=== PATIENT | male | born 1935 | race Caucasian/White ===

== ENCOUNTER → 2016-12-07 | Outpatient (CLI) | payer MEDICARE ==
[~2016-12-07] MED LIST: AMIO200T2 PO; CARV25TA2 PO; CLOP75TA19 PO; FAMO-137 PO; GLIM2TAB26 PO; METF-206 PO; RIVA20TA PO
--- NOTE | 2016-12-07 13:20 | DI ---
Indication: ITS.REASON: R09.89 CAROTID BRUIT PROCEDURE: US CAROTID DOPP COMPLETE: TECHNIQUE: Grayscale, color and duplex Doppler imaging was performed of the carotid systems bilaterally. Velocities in cm/sec - validated velocity measurements with angiographic measurements, velocity criteria are extrapolated from diameter data as defined by the Society of Radiologists in Ultrasound Consensus Conference Radiology 2003; 229;340-346. RIGHT: PSV ICA 71 EDV ICA 15 PSV CCA 57 EDV CCA 9 SVR 1.2 PSV ECA 82 ICA Diameter reduction 20%-40% (1.2-1.4 [id number])% LEFT: PSV ICA 221 EDV ICA 34 PSV CCA 104 EDV CCA 4.3 SVR 2.1 PSV ECA 160 ICA Diameter reduction 70%-80% (>2.5 PSV>200)% The right vertebral artery is patent with cephalic flow. The left vertebral artery is patent with cephalic flow. Mild plaque in the right carotid bulb and proximal ICA. No velocity elevation on the right. Heavy atherosclerotic plaque in the left common carotid and carotid bulb. Large noncalcified plaque in the left proximal ICA with focal velocity elevation. Velocities decrease through the mid to distal left ICA but remain above normal. IMPRESSION: 1. 70-80% stenosis in the left proximal ICA, decreasing to 50-60% more distally. 2. No hemodynamically significant carotid stenosis on the right. .
== END ==
LOC: IMA 12:26
PROVIDERS: ATTEND Family Medicine
DX: I65.22 Occlusion and stenosis of left carotid artery (principal); R01.2 Other cardiac sounds; R09.89 Other specified symptoms and signs involving the circulatory and respiratory systems

== ENCOUNTER 2016-12-18 07:17 | Inpatient (IN) ==
--- NOTE | 2016-12-18 07:59 | Emergency Department Report ---
General Adult HPI - General Chief complaint: Shortness of Breath/Dyspnea Stated complaint: soa Time Seen by Provider: 12/18/16 07:30 Source: patient, family Mode of arrival: ambulatory Limitations: no limitations - History of Present Illness HPI narrative: 81-year-old male presents to the emergency department with a chief complaint of feeling short of breath. Patient states that he has a history of atrial fibrillation and feels like he is in atrial fibrillation again. Patient notes feeling like his heart is beating irregularly and hard in his left chest. Patient does not feel any radiation of his symptoms. No other complaints or associated symptoms. Patient notes that he is usually chronically short of breath but feels like his symptoms have exacerbated over the past 24-48 hours. Patient does not note any exacerbating or remitting symptoms. No other complaints or associated symptoms. Patient states that he has been compliant with his Xarelto/Plavix and other medication regimens. Symptoms have persisted in nature since onset. - Related Data Home Medications Medication Instructions Recorded Confirmed Clopidogrel Bisulfate [Plavix] 75 mg PO DAILY #0 12/31/12 12/18/16 Glimepiride 2 mg PO DAILY #0 01/07/13 12/18/16 Famotidine [Pepcid] 1 tab PO DAILY #0 tab 09/10/14 12/18/16 Amiodarone HCl 1 tab PO BID #30 10/14/15 12/18/16 Carvedilol 1 tab PO DAILY #60 10/14/15 12/18/16 Rivaroxaban [Xarelto] 20 mg PO DAILY #30 10/14/15 12/18/16 Metformin [Glucophage] 1,000 mg PO BID 12/18/16 12/18/16 Pedi Mv No.79/Ferrous Fumarate 18 mg PO DAILY 12/18/16 12/18/16 [Flintstones with Iron Tab Chew] Allergies Allergy/AdvReac Type Severity Reaction Status Date / Time No Known Allergies Allergy Verified 12/18/16 07:44 Review of Systems Constitutional: Denies: fever, chills Eyes: Denies: eye discharge, vision change ENT: Denies: ear pain, throat pain Cardiovascular: Denies: chest pain, palpitations Respiratory: Reports: dyspnea. Denies: cough Gastrointestinal: Denies: abdominal pain, nausea, vomiting, diarrhea Genitourinary: Denies: dysuria, frequency Musculoskeletal: Denies: back pain, joint swelling Integumentary: Denies: erythema, rash Neurological: Denies: headache, weakness, numbness Psychiatric: Denies: anxiety, depression Endocrine: Denies: fatigue, heat or cold intolerance Hematological/Lymphatic: Denies: easy bleeding, easy bruising Allergic/Immunologic: Denies: facial swelling, urticaria PFSH Patient Stated Medical History Cataracts Yes Angina Yes Congestive Heart Failure Yes Hypertension Yes Diabetes Mellitus Type 1 Yes Hx Incontinence Yes Hx Urinary Tract Infection Yes Osteoarthritis Yes Shingles Yes Surgical History: Cardiac catheterization with stent placement. Family History: Diabetes mellitus Smoking status: Never smoker Substance use type: does not use Alcohol intake frequency: does not drink Physical Exam - Limitations Limitations: no limitations - General General appearance: alert, in no apparent distress - Normal Exams: Head:: Normocephalic without trauma Eyes:: Pupils are PERRLA w/ EOMI, No scleral icterus, irritation, or foreign bodies noted ENMT:: No facial trauma, nasal exudates, pharyngeal erythema, or exudates are noted Dental: No fractured, loose, or missing teeth noted Neck:: Full range of motion, without adenopathy, JVD, bruits or thyromegaly Chest/Respirations:: Clear all black (Coarse breath sounds bibasilar.), with good airflow, and symmetry bilaterally Cardiovascular:: Regular rate and rhythm, without murmur or gallop, Pulses 2+ all extremities, capillary refill, <2 seconds all extremities Abdomen:: Bowel sounds positive, soft, non-tender, non-distended, no hepatosplenomegaly, masses or bruits noted Lymphatic:: No lymphadenopathy, or lymphedema noted Musculoskeletal:: No tenderness, or deformity noted, good range of motion, all extremities Integumentary:: No rashes, hives, or bruising noted, hair and nails, without abnormality Neurological:: Patient is alert, and oriented, cranial nerves, motor/sensory/ cerebellar, exams w/o gross deficits, to observation Psychiatric:: Patient exhibits, appropriate attention, emotion and affect Course Course Narrative: Labs/imaging were reviewed in detail with the patient and questions are answered. Patient was discussed with the soldering inspector Dr. Chery who agrees to admit the patient to his service. Patient is given Lopressor 25 mg by mouth times one, Lasix 20 mg IV times one, and his daily Plavix 75 mg by mouth 1. Patient is admitted to CCU in improved condition. Patient will be treated for a CHF exacerbation along with atrial flutter with RVR. Patient and family are in agreement with the current plan of management. Patient is admitted to the hospital in improved condition. No further orders from exiting physician who is in agreement with the current plan of management. Vital Signs Temperature 97.6 F 12/18/16 07:19 Pulse Rate 122 H 12/18/16 07:19 Respiratory Rate 28 H 12/18/16 07:19 Blood Pressure 156/81 H 12/18/16 07:19 Pulse Oximetry 98 12/18/16 07:19 Temperature 97.6 F 12/18/16 07:19 Pulse Rate 128 H 12/18/16 09:00 Respiratory Rate 22 12/18/16 09:00 Blood Pressure 131/78 12/18/16 09:00 Pulse Oximetry 96 12/18/16 09:00 Medical Decision Making - MDM Narrative Medical decision making narrative: Labs/imaging were reviewed in detail with the patient and questions are answered. Patient was discussed with the soldering inspector Dr. Chery who agrees to admit the patient to his service. Patient is given Lopressor 25 mg by mouth times one, Lasix 20 mg IV times one, and his daily Plavix 75 mg by mouth 1. Patient is admitted to CCU in improved condition. Patient will be treated for a CHF exacerbation along with atrial flutter with RVR. Patient and family are in agreement with the current plan of management. Patient is admitted to the hospital in improved condition. No further orders from exiting physician who is in agreement with the current plan of management. - Differential Diagnosis atrial fibrillation, atrial flutter, CHF exacerbation, dyspnea - Lab Data Result diagrams: 12/18/16 07:41 12/18/16 07:41 Lab Results 12/18/16 12/18/16 12/18/16 Range/Units 07:41 07:41 08:06 WBC 10.8 (4.5-11.0) T/MM3 RBC 4.79 (4.50-5.90) M/MM3 Hgb 10.8 L (13.5-17.5) GM/DL Hct 36.0 L (41-53) % MCV 75.2 L (80-100) UM3 MCH 22.5 L (26-34) UUG MCHC 30.0 L (31-37) GM/DL RDW Std Deviation 54.9 H (36.9-50.2) FL Plt Count 294 (130-400) T/MM3 MPV 11.5 (9.4-12.4) UM3 Immature Gran % (Auto) 0.1 (0.0-0.5) % Neut % (Auto) 76.7 H (33-66) % Lymph % (Auto) 14.5 L (23-45) % [place] % (Auto) 6.2 (0-9.0) % Eos % (Auto) 2.2 (0-4) % Baso % (Auto) 0.3 (0-2) % Neut # 8.3 H (1.8-7.7) T/MM3 Lymph # 1.6 (1-4.8) T/MM3 [place] # 0.7 (0-0.8) T/MM3 Eos # 0.2 (0-0.5) T/MM3 Baso # 0.0 (0-0.2) T/MM3 Abs Immat Gran (auto) 0.01 (0.00-0.03) T/MM3 Turbidity 20 (0-20) Sodium 148 H (134-144) MEQ/L Potassium 4.9 (3.6-5) MEQ/L Chloride 110 H (98-107) MEQ/L Carbon Dioxide 21 L (22-30) MEQ/L Anion Gap 17 H (5-15) MEQ/L BUN 31.0 H (9-20) MG/DL Creatinine 1.3 (0.8-1.5) MG/DL GFR Calculation 53 BUN/Creatinine Ratio 24 (6-26) RATIO Glucose 198 H (75-110) MG/DL Calculated Osmolality 297 H (261-280) MOSM/KG Calcium 9.3 (8.4-10.2) MG/DL Total Bilirubin 0.80 (0.20-1.30) MG/DL Icterus Index 2 (0-7) AST 26 (17-59) U/L ALT 48 (21-72) U/L Alkaline Phosphatase 30 L (38-126) U/L Troponin I 0.079 (0-0.12) ng/ml B-Natriuretic Peptide 7300 H (0-175) pg/mL Total Protein 6.9 (6.3-8.2) G/DL Albumin 4.2 (3.5-5.0) G/DL Globulin 2.7 (2.4-3.6) G/DL Albumin/Globulin Ratio 1.6 (1.1-2.2) RATIO Plasma Lactate (0.6-2.2) MMOL/L Procalcitonin < 0.05 NG/ML Specimen Hemolysis 15 (0-25) // Range/Units 08:06 WBC (4.5-11.0) T/MM3 RBC (4.50-5.90) M/MM3 Hgb (13.5-17.5) GM/DL Hct (41-53) % MCV (80-100) UM3 MCH (26-34) UUG MCHC (31-37) GM/DL RDW Std Deviation (36.9-50.2) FL Plt Count (130-400) T/MM3 MPV (9.4-12.4) UM3 Immature Gran % (Auto) (0.0-0.5) % Neut % (Auto) (33-66) % Lymph % (Auto) (23-45) % [place] % (Auto) (0-9.0) % Eos % (Auto) (0-4) % Baso % (Auto) (0-2) % Neut # (1.8-7.7) T/MM3 Lymph # (1-4.8) T/MM3 [place] # (0-0.8) T/MM3 Eos # (0-0.5) T/MM3 Baso # (0-0.2) T/MM3 Abs Immat Gran (auto) (0.00-0.03) T/MM3 Turbidity (0-20) Sodium (134-144) MEQ/L Potassium (3.6-5) MEQ/L Chloride (98-107) MEQ/L Carbon Dioxide (22-30) MEQ/L Anion Gap (5-15) MEQ/L BUN (9-20) MG/DL Creatinine (0.8-1.5) MG/DL GFR Calculation BUN/Creatinine Ratio (6-26) RATIO Glucose (75-110) MG/DL Calculated Osmolality (261-280) MOSM/KG Calcium (8.4-10.2) MG/DL Total Bilirubin (0.20-1.30) MG/DL Icterus Index (0-7) AST (17-59) U/L ALT (21-72) U/L Alkaline Phosphatase (38-126) U/L Troponin I (0-0.12) ng/ml B-Natriuretic Peptide (0-175) pg/mL Total Protein (6.3-8.2) G/DL Albumin (3.5-5.0) G/DL Globulin (2.4-3.6) G/DL Albumin/Globulin Ratio (1.1-2.2) RATIO Plasma Lactate 1.3 (0.6-2.2) MMOL/L Procalcitonin NG/ML Specimen Hemolysis (0-25) - Radiology Data CXR - Mild pulmonary edema, probably due to CHF. - EKG Data EKG #1 EKG results narrative: EKG -Atrial flutter. 124 bpm. No STEMI. Critical Care Time Total Critical Care Time: 42 Attestation: The patient required complex medical decision-making, repeated assessment at bedside, and had potential for decompensation. The 42 minutes was spent documenting the medical record, discussing with family, reviewing labs/imaging. Patient was admitted to the intensive care unit for further evaluation and treatment. Disposition Clinical Impression: Atrial flutter Qualifiers: Atrial flutter type: unspecified Qualified Code(s): I48.92 - Unspecified atrial flutter CHF (congestive heart failure) Qualifiers: Congestive heart failure type: unspecified congestive heart failure type Congestive heart failure chronicity: acute on chronic Qualified Code(s): I50.9 - Heart failure, unspecified Disposition: Discharged Home, Self-Care Condition: Improved Time of Disposition: 08:15 (Admit to Dr. Bishop. ) - Seen By: physician
[2016-12-18] MEDS ORDERED: CLOPIDOGREL 75 MG TABLET PO ONE (08:31)
[2016-12-18] MEDS ORDERED: FUROSEMIDE 20 MG/2 ML INJECTION IVP ONE (08:32)
--- NOTE | 2016-12-18 08:54 | XRay Report ---
Indication: sob and weakness PROCEDURE: XR chest 1V: Encounter: Initial Comparison: September 22, 2015 Findings: Mild pulmonary vascular congestion without focal lobar consolidation. No pneumothorax. Trace pleural effusions. Cardiac silhouette is moderately enlarged. Left pacemaker. Mediastinal contours are stable. Impression: Mild pulmonary edema, probably due to CHF. .
[2016-12-18] MEDS ORDERED: CARVEDILOL 25 MG TABLET PO SCH (11:15)
[2016-12-18] MEDS ORDERED: RIVAROXABAN 20 MG TABLET PO SCH (11:15)
--- NOTE | 2016-12-18 11:59 | Cardiology History & Physical ---
History of Present Illness Chief complaint: shortness of breath HPI: 81-year-old male presented to the emergency department with a chief complaint of feeling short of breath. Patient has a history of atrial fibrillation and feels like he is in atrial fibrillation again. Patient notes feeling like his heart is beating irregularly and hard in his left chest. Patient states that he has been compliant with his Xarelto/Plavix and other medication regimens. Symptoms have persisted in nature since onset. 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 He denies any accompanying chest pain, LE edema, pre- syncope, PND. He is positive for orthopnea. He is an established patient with Dr. Benitez, with whom he underwent a DCCV within the last 2 years. He has been on sotalol and xarelto since that time, he states he is aware he goes in and out of AFib frequently but denies associated prolonged symptoms. He reports a personal history of an AZ with subsequent stent placement with Dr. Rebolledo 3years ago, he also had a PPM placed around that same time. His PPM is a [employer] device, he remote monitors at home. He reports a right CEA within the last [address] Boone and had a DCD 1 month ago, report carotids are stable. He was scheduled for a MPI next week with Dr. Benitez, he denies an ECHO within the last one year. He denies previous care of EP or an ablation. He follows with Dr. Mtz for chronic anemia, DM2, HTN, HLD. He is currently in a lipid study with [facility] [employer]. Review of Systems - Constitutional Constitutional: Present: fatigue, weight gain - EENMT Eyes: Present: requires corrective lenses Balance: Present: falling to one side. Absent: vertigo Nose: Absent: allergies Mouth/Throat: Present: changes in swallowing, painful swallowing - Cardiovascular Cardiovascular: Present: palpitations, dyspnea on exertion, orthopnea. Absent: chest pain, syncope, edema Rhythm: Present: abnormal rhythm Vascular: Present: unilateral swelling. Absent: pedal edema - Respiratory Respiratory: Present: dyspnea, dyspnea on exertion. Absent: cough - Gastrointestinal Gastrointestinal: Present: dysphagia. Absent: change in bowel habits, constipation - Genitourinary Genitourinary: Absent: difficulty urinating - Musculoskeletal Musculoskeletal: Present: abnormal gait (prior right leg injury) - Integumentary/Breasts Integumentary: Absent: erythema, rash - Neurological Neurological: Absent: confusion, dizziness, frequent falls, memory loss, vertigo - Psychiatric Psychiatric: Absent: anxiety, behavioral changes - Endocrine Endocrine: Absent: excessive sweating - Hematologic/Lymphatic Hematologic/Lymphatic: Absent: lymphadenopathy - Allergic/Immunologic Allergic/Immunologic: Absent: seasonal rhinorrhea PFSH chronic anemia AZ CAD s/p stenting Carotid stenosis DM 2 HTN HLD wears home O2, nocturnally Surgical History: Cardiac catheterization with stent placement. Right CEA. Right LE fracture/repair 1976 Smoking status: Never smoker Substance use type: does not use Alcohol intake: never Housing: house Household members: spouse Current occupational status: retired, other ([employer]) Current occupational exposures/hazards: No Does patient use chewing tobacco?: No Current residence: Apartment/Private Home Medications Home Medications Medication Instructions Recorded Confirmed Type Glimepiride 2 mg PO DAILY #0 01/07/13 12/18/16 History Famotidine [Pepcid] 1 tab PO DAILY #0 tab 09/10/14 12/18/16 History Rivaroxaban [Xarelto] 20 mg PO DAILY #30 10/14/15 12/18/16 History Lisinopril [Prinivil] 10 mg PO DAILY 12/18/16 12/18/16 History Metformin [Glucophage] 1,000 mg PO BID 12/18/16 12/18/16 History Pedi Mv No.79/Ferrous Fumarate 18 mg PO DAILY 12/18/16 12/18/16 History [Flintstones with Iron Tab Chew] Simvastatin [Zocor] 40 mg PO DAILY 12/18/16 12/18/16 History Allergies Allergy/AdvReac Type Severity Reaction Status Date / Time No Known Allergies Allergy Verified 12/18/16 07:44 Exam Vital signs: Temp Pulse Resp BP Pulse Ox 97.6 F 128 H 22 150/79 H 96 12/18/16 07:19 12/18/16 09:00 12/18/16 09:00 12/18/16 09:30 12/18/16 09:00 - Constitutional no acute distress - Routine HEENT Exam Head: Present: normocephalic, atraumatic Eye: Present: PERRL, normal accommodation ENT: Present: mucous membranes moist - Routine Neck Exam Present: supple, trachea midline. Absent: JVD, carotid bruit, lymphadenopathy - Routine Chest/Breast/Axilla Exam Chest wall: Present: pacemaker - Routine Respiratory Exam Present: rales (bilateral lower lobes, left >right) - Routine Cardiovascular Exam Present: no murmur, tachycardia. Absent: JVD - Routine Abdominal Exam Present: distended. Absent: tenderness - Routine Extremities Exam Present: no edema, non tender, pulses intact - Routine Skin Exam Present: intact - Routine Neurological Exam Present: alert, oriented X3 - Routine Psychiatric Exam Present: normal affect, normal thought process Results 12/20/16 08:22 12/20/16 08:22 12/18/16 07:41 12/18/16 07:41 - Imaging and Cardiology Echo: pending EKG results: report reviewed, image reviewed Imaging & Cardiology Narrative: 12/18/16 12:04 Cardiac Enzymes 12/18/16 Range/Units 07:41 AST 26 (17-59) U/L Troponin I 0.079 (0-0.12) ng/ml B-Natriuretic Peptide 7300 H (0-175) pg/mL Coagulation 12/18/16 Range/Units 07:41 B-Natriuretic Peptide 7300 H (0-175) pg/mL CBC 12/18/16 Range/Units 07:41 WBC 10.8 (4.5-11.0) T/MM3 RBC 4.79 (4.50-5.90) M/MM3 Hgb 10.8 L (13.5-17.5) GM/DL Hct 36.0 L (41-53) % Plt Count 294 (130-400) T/MM3 Neut # 8.3 H (1.8-7.7) T/MM3 Lymph # 1.6 (1-4.8) T/MM3 [place] # 0.7 (0-0.8) T/MM3 Eos # 0.2 (0-0.5) T/MM3 Baso # 0.0 (0-0.2) T/MM3 Comprehensive Metabolic Panel 12/18/16 Range/Units 07:41 Sodium 148 H (134-144) MEQ/L Potassium 4.9 (3.6-5) MEQ/L Chloride 110 H (98-107) MEQ/L Carbon Dioxide 21 L (22-30) MEQ/L BUN 31.0 H (9-20) MG/DL Creatinine 1.3 (0.8-1.5) MG/DL Glucose 198 H (75-110) MG/DL Calcium 9.3 (8.4-10.2) MG/DL AST 26 (17-59) U/L ALT 48 (21-72) U/L Alkaline Phosphatase 30 L (38-126) U/L Total Protein 6.9 (6.3-8.2) G/DL Albumin 4.2 (3.5-5.0) G/DL Intake and Output 12/17/16 12/18/16 12/18/16 22:59 06:59 14:59 Other: Weight 75 kg Patient Weight 12/19/16 06:59 Weight 75 kg - EKG Interpretation EKG: interpreted by DAMI (Atrial Flutter, RVR, RAD, old AZ), no acute changes EKG interpretations - Dysrhythmias Supraventricular dysrhythmia: atrial flutter Assessment and Plan (1) Atrial fibrillation Status: Acute Amiodarone gtt, cardizem gtt for rate control. TSH wnl, Mag and K wnl. ECG in AM , consider DCCV tomorrow. (2) Atrial flutter Status: Chronic Metoprolol 25mg po x1 in ED, no rate improvement. Cardizem gtt initiated in CCU. Continue home Amiodarone 200mg po dialy, decrease home coreg dose from 25mg po bid to 12.5mg po bid while on cardizem gtt. Continue home Xarelto. Plan for DCCV tomorrow if remains in Aflutter/fib. Will check, TSH, Mag. (3) CHF (congestive heart failure) Status: Acute BNP 7800. Lasix 20mg IV x1 in ED this AM. Lasix 20mg IV tid for diuresis. Replace potassium 20meq bid. I&O. (4) Coronary arteriosclerosis in [place] artery Status: Chronic No acute ischemic ECG changes. Initial troponin elevated, .07, Serial troponins. (5) Hypertension Status: Chronic Continue home anti-hypertensive, lisinopril. Monitor while on cardizem gtt. (6) Hyperlipidemia Status: Chronic Pt reports being in a [employer] research program for HLD treatment, he takes OTC meds and gets a SQ shot every 2 weeks, he does not know what the shot consists of. (7) Carotid artery stenosis Status: Chronic s/p Right CEA approx 3 years ago, report DCD last month with mild left ICA disease. (8) Pacemaker Status: Chronic Interrogate device tomorrow AM (9) Diabetes mellitus type 2 in nonobese Status: Chronic Home meds restarted. Dr. Mtz consulted to manage. (10) Anemia Status: Chronic Hgb 10.9 today, pt reports known anemia w/iron supplementation for one year, Dr. Mtz consulted to manage. Sepsis Assessment - Focused Exam Vital Signs Pulse Resp BP Pulse Ox 12/18/16 09:30 150/79 H 12/18/16 09:00 128 H 22 131/78 96 Hospital Course Summary Disclaimer: The visit summary below is not to be considered part of the above Progress Note. Hospital Course: Mr. Samson is a 81 year old male 12/21/16 08:01 After examining the patient I agree with the above assessment. I am involved in the formulation of the patient's plan of care.
[2016-12-18] MEDS ORDERED: MIDAZOLAM 2mg/2ml INJECTION IVP ONE (12:00)
[2016-12-18] MEDS ORDERED: FentaNYL 100 MCG/2 ML INJECTION IVP ONE (12:00)
[2016-12-18] MEDS: DILTIAZEM IV SCH (12:11)
[2016-12-18] MEDS: NS IV SCH (12:11)
[2016-12-18] MEDS: FUROSEMIDE 20 MG/2 ML INJECTION IVP SCH ×2 (13:19→17:47)
[2016-12-18] MEDS ORDERED: AMIODARONE 150 MG in NS 100 ML IV ONE (13:26)
[2016-12-18] MEDS: AMIODARONE 900 MG in NS 500ml 500 ML IV SCH (15:18)
[2016-12-18] MEDS ORDERED: CARVEDILOL 12.5 MG TABLET PO SCH (17:30)
[2016-12-18] MEDS: METFORMIN 1,000 MG TABLET PO SCH ×2 (17:45→17:50)
[2016-12-18] MEDS ORDERED: AMIODARONE 200 MG TABLET PO SCH (21:00)
[2016-12-18] MEDS: SIMVASTATIN 40 MG TABLET PO SCH ×2 (22:07→22:53)
[2016-12-19] MEDS: FUROSEMIDE 20 MG/2 ML INJECTION IVP SCH ×3 (01:04→17:40)
[2016-12-19] MEDS: GLIMEPIRIDE 2 MG TABLET PO SCH (08:51)
[2016-12-19] MEDS: CLOPIDOGREL 75 MG TABLET PO SCH (08:52)
[2016-12-19] MEDS: METFORMIN 1,000 MG TABLET PO SCH ×2 (08:52→17:59)
[2016-12-19] MEDS: FAMOTIDINE 20 MG TABLET PO SCH (08:52)
[2016-12-19] MEDS: MULTI-VITAMIN + IRON TABLET PO SCH (08:53)
[2016-12-19] MEDS: LISINOPRIL 10 MG TABLET PO SCH (10:15)
[2016-12-19] MEDS: NS IV SCH (17:22)
[2016-12-19] MEDS: DILTIAZEM IV SCH (17:22)
[2016-12-19] MEDS: AMIODARONE 900 MG in NS 500ml 500 ML IV SCH (17:23)
[2016-12-19] MEDS ORDERED: RIVAROXABAN 20 MG TABLET PO SCH (17:30)
[2016-12-19] MEDS: CARVEDILOL 12.5 MG TABLET PO SCH (18:00)
[2016-12-19] MEDS: SIMVASTATIN 40 MG TABLET PO SCH (21:42)
[2016-12-19] MEDS: AMIODARONE 200 MG TABLET PO SCH (21:42)
[2016-12-20] MEDS: MULTI-VITAMIN + IRON TABLET PO SCH (08:29)
[2016-12-20] MEDS: CARVEDILOL 12.5 MG TABLET PO SCH (08:30)
[2016-12-20] MEDS: GLIMEPIRIDE 2 MG TABLET PO SCH (08:30)
[2016-12-20] MEDS: METFORMIN 1,000 MG TABLET PO SCH (08:30)
[2016-12-20] MEDS: CLOPIDOGREL 75 MG TABLET PO SCH (08:31)
[2016-12-20] MEDS: LISINOPRIL 10 MG TABLET PO SCH (08:32)
[2016-12-20] MEDS: AMIODARONE 200 MG TABLET PO SCH (08:32)
[2016-12-20] MEDS: FAMOTIDINE 20 MG TABLET PO SCH (08:32)
--- NOTE | 2016-12-20 08:38 | Echocardiogram ---
DATE OF PROCEDURE December 19, 2016 This is a two-dimensional echo with spectral Doppler, color-flow and M-mode. It was obtained in a patient with atrial flutter. Left atrial dimension is normal. Left ventricle end-diastolic dimension is normal. Left ventricle wall thickness is normal. LV systolic function is reduced with global hypokinesia with ejection fraction of about 30%. Right atrium is normal. Right ventricle is normal. Aortic root dimension is normal. Mitral valve is morphologically normal with mild mitral regurgitation. Aortic valve shows fibrocalcific changes with no stenosis. Mild aortic insufficiency is present. Tricuspid valve shows mild tricuspid regurgitation with normal estimated pulmonary artery systolic pressure of 29. Pulmonary valve shows mild pulmonary insufficiency. There is no pericardial effusion. Pacemaker is seen in the right heart. IMPRESSION 1. Global hypokinesia with ejection fraction of about 30%. 2. Aortic sclerosis. 3. Mild mitral regurgitation. 4. Mild aortic insufficiency. 5. Mild tricuspid regurgitation with normal estimated pulmonary artery systolic pressure of 29. 6. Mild pulmonary insufficiency. 7. Pacemaker present in the right heart. MTDD
[2016-12-20] MEDS ORDERED: FUROSEMIDE 20 MG TABLET PO SCH (09:00)
--- NOTE | 2016-12-20 09:09 | DC Cardioversion ---
DATE OF PROCEDURE December 19, 2016 The patient is a pleasant 81-year-old gentleman with history of paroxysmal atrial fibrillation who presented with symptomatic atrial fibrillation/atrial flutter on chronic anticoagulation and was referred for DC cardioversion after failing to convert to sinus by amiodarone. Informed consent was obtained after explaining the procedure and the potential risks to the patient who agreed to proceed with the procedure. PROCEDURE DC cardioversion. Conscious sedation was performed using Versed and fentanyl. Anterior-posterior Zoll pads were applied. 360 joules of energy was delivered in synchronized manner and patient converted from atrial fibrillation to atrial paced rhythm and AV paced rhythm. He tolerated the procedure well with no complications. IMPRESSION 1. Successful DC cardioversion of atrial fibrillation to paced rhythm. PLAN May interrogate the pacemaker and continue anticoagulation. Will continue antiarrhythmics to maintain sinus. One might consider referral to packaging design engineer for possible ablation if clinically indicated. TING
[2016-12-20] MEDS ORDERED: CARVEDILOL 12.5 MG TABLET PO ONE (09:40)
--- NOTE | 2016-12-20 10:19 | Discharge Summary ---
<Josee Ibarra - Last Filed: 12/21/16 13:53> Discharge Information Date of admission: 12/18/16 08:56 Anticipated date of discharge: 12/20/16 Attending Physician: Shemar Bishop MD Primary care physician: Geovani Mtz II, MD Consults: 12/18/16 11:32 Physician Consult [CONS] Routine Consulting Provider: Geovani Mtz II Reason For Exam: DM, Anemia Ordering Provider has Notified Director Of Safety And Security: Yes - Discharge Diagnosis (1) Atrial flutter Qualifiers: Atrial flutter type: unspecified Qualified Code(s): I48.92 - Unspecified atrial flutter Status: Chronic (2) CHF (congestive heart failure) Qualifiers: Congestive heart failure type: systolic Congestive heart failure chronicity : acute on chronic Qualified Code(s): I50.23 - Acute on chronic systolic ( congestive) heart failure Status: Acute (3) Coronary arteriosclerosis in [place] artery Status: Chronic (4) Hypertension Qualifiers: Hypertension type: essential hypertension Qualified Code(s): I10 - Essential (primary) hypertension Status: Chronic (5) Hyperlipidemia Qualifiers: Hyperlipidemia type: mixed hyperlipidemia Qualified Code(s): E78.2 - Mixed hyperlipidemia Status: Chronic (6) Carotid artery stenosis Qualifiers: Laterality: unspecified laterality Qualified Code(s): I65.29 - Occlusion and stenosis of unspecified carotid artery Status: Chronic (7) Pacemaker Status: Chronic (8) Diabetes mellitus type 2 in nonobese Status: Chronic (9) Anemia Status: Chronic (10) Atrial fibrillation Status: Acute - Procedures Procedures: DATE OF PROCEDURE December 19, 2016 The patient is a pleasant 81-year-old gentleman with history of paroxysmal atrial fibrillation who presented with symptomatic atrial fibrillation/atrial flutter on chronic anticoagulation and was referred for DC cardioversion after failing to convert to sinus by amiodarone. Informed consent was obtained after explaining the procedure and the potential risks to the patient who agreed to proceed with the procedure. PROCEDURE DC cardioversion. Conscious sedation was performed using Versed and fentanyl. Anterior-posterior Zoll pads were applied. 360 joules of energy was delivered in synchronized manner and patient converted from atrial fibrillation to atrial paced rhythm and AV paced rhythm. He tolerated the procedure well with no complications. IMPRESSION 1. Successful DC cardioversion of atrial fibrillation to paced rhythm. PLAN May interrogate the pacemaker and continue anticoagulation. Will continue antiarrhythmics to maintain sinus. One might consider referral to utilization management um nurse for possible ablation if clinically indicated. - Laboratory Labs: 12/20/16 08:22 12/20/16 08:22 Laboratory Results - last 48 hr 12/18/16 12/18/16 12/18/16 08:06 12:20 16:07 WBC RBC Hgb Hct MCV MCH MCHC RDW Std Deviation Plt Count MPV Immature Gran % (Auto) Neut % (Auto) Lymph % (Auto) Story % (Auto) Eos % (Auto) Baso % (Auto) Neut # Lymph # Story # Eos # Baso # Abs Immat Gran (auto) Turbidity Sodium Potassium Chloride Carbon Dioxide Anion Gap BUN Creatinine GFR Calculation BUN/Creatinine Ratio Glucose Glucometer Calculated Osmolality Calcium Magnesium 2.0 Icterus Index Troponin I 0.109 Plasma Lactate 1.3 TSH 0.93 Specimen Hemolysis 15 12/18/16 12/19/16 12/19/16 20:58 04:39 04:39 WBC 10.0 RBC 4.70 Hgb 10.5 L Hct 35.8 L MCV 76.2 L MCH 22.3 L MCHC 29.3 L RDW Std Deviation 55.6 H Plt Count 273 MPV 11.2 Immature Gran % (Auto) 0.2 Neut % (Auto) 74.1 H Lymph % (Auto) 15.4 L Story % (Auto) 8.6 Eos % (Auto) 1.5 Baso % (Auto) 0.2 Neut # 7.4 Lymph # 1.5 Story # 0.9 H Eos # 0.2 Baso # 0.0 Abs Immat Gran (auto) 0.02 Turbidity 20 Sodium 145 H Potassium 4.6 Chloride 107 Carbon Dioxide 24 Anion Gap 14 BUN 39.0 H Creatinine 1.5 D GFR Calculation 45 BUN/Creatinine Ratio 26 Glucose 163 H Glucometer 195 Calculated Osmolality 292 H Calcium 9.3 Magnesium Icterus Index 2 Troponin I 0.152 H Plasma Lactate TSH Specimen Hemolysis 12/19/16 12/19/16 12/19/16 06:19 11:14 11:53 WBC RBC Hgb Hct MCV MCH MCHC RDW Std Deviation Plt Count MPV Immature Gran % (Auto) Neut % (Auto) Lymph % (Auto) Story % (Auto) Eos % (Auto) Baso % (Auto) Neut # Lymph # Story # Eos # Baso # Abs Immat Gran (auto) Turbidity Sodium Potassium Chloride Carbon Dioxide Anion Gap BUN Creatinine GFR Calculation BUN/Creatinine Ratio Glucose Glucometer 174 143 Calculated Osmolality Calcium Magnesium Icterus Index Troponin I 0.108 Plasma Lactate TSH Specimen Hemolysis 15 12/19/16 12/19/16 12/20/16 17:28 21:20 06:11 WBC RBC Hgb Hct MCV MCH MCHC RDW Std Deviation Plt Count MPV Immature Gran % (Auto) Neut % (Auto) Lymph % (Auto) Story % (Auto) Eos % (Auto) Baso % (Auto) Neut # Lymph # Story # Eos # Baso # Abs Immat Gran (auto) Turbidity Sodium Potassium Chloride Carbon Dioxide Anion Gap BUN Creatinine GFR Calculation BUN/Creatinine Ratio Glucose Glucometer 115 188 144 Calculated Osmolality Calcium Magnesium Icterus Index Troponin I Plasma Lactate TSH Specimen Hemolysis 12/20/16 12/20/16 08:22 08:22 WBC 6.9 RBC 4.35 L Hgb 9.7 L Hct 33.5 L MCV 77.0 L MCH 22.3 L MCHC 29.0 L RDW Std Deviation 55.3 H Plt Count 250 MPV 11.5 Immature Gran % (Auto) Neut % (Auto) Lymph % (Auto) Story % (Auto) Eos % (Auto) Baso % (Auto) Neut # Lymph # Story # Eos # Baso # Abs Immat Gran (auto) Turbidity 20 Sodium 145 H Potassium 4.6 Chloride 105 Carbon Dioxide 26 Anion Gap 14 BUN 42.0 H Creatinine 1.5 GFR Calculation 45 BUN/Creatinine Ratio 28 H Glucose 133 H Glucometer Calculated Osmolality 292 H Calcium 8.9 Magnesium Icterus Index 2 Troponin I Plasma Lactate TSH Specimen Hemolysis 15 - Radiology Radiology: Date of Exam: 12/19/16 Type of Exam(s): US echo doppler complete DATE OF PROCEDURE December 19, 2016 This is a two-dimensional echo with spectral Doppler, color-flow and M-mode. It was obtained in a patient with atrial flutter. Left atrial dimension is normal. Left ventricle end-diastolic dimension is normal. Left ventricle wall thickness is normal. LV systolic function is reduced with global hypokinesia with ejection fraction of about 30%. Right atrium is normal. Right ventricle is normal. Aortic root dimension is normal. Mitral valve is morphologically normal with mild mitral regurgitation. Aortic valve shows fibrocalcific changes with no stenosis. Mild aortic insufficiency is present. Tricuspid valve shows mild tricuspid regurgitation with normal estimated pulmonary artery systolic pressure of 29. Pulmonary valve shows mild pulmonary insufficiency. There is no pericardial effusion. Pacemaker is seen in the right heart. IMPRESSION 1. Global hypokinesia with ejection fraction of about 30%. 2. Aortic sclerosis. 3. Mild mitral regurgitation. 4. Mild aortic insufficiency. 5. Mild tricuspid regurgitation with normal estimated pulmonary artery systolic pressure of 29. 6. Mild pulmonary insufficiency. 7. Pacemaker present in the right heart. = = = = = = = = = = = = = = = = = = = = = = = = = = = = = = = = = = = = = = = = = = = = = = = = = = = = = = = = = = = Date of Exam: 12/18/16 Ordering Provider: Joni Braga DO Type of Exam(s): XR chest 1V Reason for Exam(s): sob Indication: sob and weakness PROCEDURE: XR chest 1V: Encounter: Initial Comparison: September 22, 2015 Findings: Mild pulmonary vascular congestion without focal lobar consolidation. No pneumothorax. Trace pleural effusions. Cardiac silhouette is moderately enlarged. Left pacemaker. Mediastinal contours are stable. Impression: Mild pulmonary edema, probably due to CHF. History of Present Illness HPI: 81-year-old male presented to the emergency department with a chief complaint of feeling short of breath. Patient has a history of atrial fibrillation and feels like he is in atrial fibrillation again. Patient notes feeling like his heart is beating irregularly and hard in his left chest. Patient states that he has been compliant with his Xarelto/Plavix and other medication regimens. Symptoms have persisted in nature since onset. 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 He denies any accompanying chest pain, LE edema, pre- syncope, PND. He is positive for orthopnea. He is an established patient with Dr. Benitez, with whom he underwent a DCCV within the last 2 years. He has been on sotalol and xarelto since that time, he states he is aware he goes in and out of AFib frequently but denies associated prolonged symptoms. He reports a personal history of an MN with subsequent stent placement with Dr. Rebolledo 3years ago, he also had a PPM placed around that same time. His PPM is a [employer] device, he remote monitors at home. He reports a right CEA within the last [address] Boone and had a DCD 1 month ago, report carotids are stable. He was scheduled for a MPI next week with Dr. Benitez, he denies an ECHO within the last one year. He denies previous care of EP or an ablation. He follows with Dr. Mtz for chronic anemia, DM2, HTN, HLD. He is currently in a lipid study with [facility]. Hospital Course Hospital course: Mr. Samson is a 81 year old male who was admitted on 12/18/16 with A Fib with RVR , on 12/19/16 he underwent DCCV under conscious sedation. He was started on Amiodarone for rhythm control, diltiazem for rate control and Coreg due to his EF of 30%. He was diuresed during the hospitalization with IV Lasix. He was discharged on Lasix 2omg daily and lab to be drawn 12/23/16. His care will resume by Dr. Benitez as patient has an appointment on 01/05/17. He was given an appointment with Dr. Rao for consultation for ablation. DVT Prophylaxis: other (xarelto) Exam Vital signs: Temp Pulse Resp BP Pulse Ox 97.7 F 60 18 146/68 H 100 12/20/16 07:30 12/20/16 07:30 12/20/16 07:30 12/20/16 07:01 12/20/16 07:30 - Constitutional no acute distress, well nourished, cooperative - Routine HEENT Exam ENT: Present: mucous membranes moist - Routine Neck Exam Absent: JVD, carotid bruit - Routine Chest/Breast/Axilla Exam Chest wall: Present: pacemaker - Routine Respiratory Exam Present: rales (bibasilar). Absent: CTA bilaterally - Routine Cardiovascular Exam Present: RRR. Absent: murmur, JVD - Routine Abdominal Exam Present: soft, normoactive bowel sounds - Routine Extremities Exam Absent: edema - Routine Skin Exam Absent: rash - Routine Neurological Exam Present: alert, oriented X3 - Routine Psychiatric Exam Present: normal affect Results 12/20/16 08:22 12/20/16 08:22 Cardiac Enzymes 12/19/16 Range/Units 11:53 Troponin I 0.108 (0-0.12) ng/ml CBC 12/20/16 Range/Units 08:22 WBC 6.9 (4.5-11.0) T/MM3 RBC 4.35 L (4.50-5.90) M/MM3 Hgb 9.7 L (13.5-17.5) GM/DL Hct 33.5 L (41-53) % Plt Count 250 (130-400) T/MM3 Comprehensive Metabolic Panel 12/20/16 Range/Units 08:22 Sodium 145 H (134-144) MEQ/L Potassium 4.6 (3.6-5) MEQ/L Chloride 105 (98-107) MEQ/L Carbon Dioxide 26 (22-30) MEQ/L BUN 42.0 H (9-20) MG/DL Creatinine 1.5 (0.8-1.5) MG/DL Glucose 133 H (75-110) MG/DL Calcium 8.9 (8.4-10.2) MG/DL Intake and Output 12/19/16 12/20/16 12/20/16 22:59 06:59 14:59 Intake Total 615.01 / 615.01 240 / 240 Output Total 125 / 125 350 / 350 Balance 490.01 / 490.01 -110 / -110 Intake: IV 65.01 / 65.01 Cordarone 900 mg In 50.01 / 50.01 Normal Saline 500 ml @ 0. 5 MG/MIN 16.66 mls/hr IV .Q24H ISELA Rx#:[id number] Cardizem IV 125 mg In 15 / 15 Normal Saline 100 ml @ 5 MG/HR 5 mls/hr IV .Q24H ISELA Rx#:[id number] Oral 550 / 550 240 / 240 Output: Urine 125 / 125 350 / 350 Other: Weight 156 lb 15.506 oz Patient Weight 12/21/16 06:59 Weight 156 lb 15.506 oz - Imaging and Cardiology Echo: report reviewed EKG results: image reviewed (Apaced, QT/QTc 473/474) Discharge Plan - Med Rec/Dispo Referrals/Follow Up: Alexia Rao MD [Physician] - 12/27/16 10:45 am (Records will be sent to Dr Rao ahead of your appointment next MondayDecember 27 at 10:45.) Rita Instructions: [facility] [place] Congestive Heart Failure, Atrial Flutter (DC), A-fib ( Atrial Fibrillation) (DC), Cardioversion (DC) Prescriptions: New Amiodarone [Pacerone] 200 mg PO DAILY #30 DiltiaZEM CD [Cardizem Cd] 240 mg PO DAILY #30 cap Furosemide [Lasix] 20 mg PO DAILY #30 tab Carvedilol [Coreg] 25 mg PO BIDWM #60 tab Potassium Chloride ER Tab [K-Dur] 20 meq PO BIDWM #60 tab Continue Glimepiride 2 mg PO DAILY #0 Lisinopril [Prinivil] 10 mg PO DAILY Simvastatin [Zocor] 40 mg PO DAILY Famotidine [Pepcid] 1 tab PO DAILY #0 tab Rivaroxaban [Xarelto] 20 mg PO DAILY #30 Pedi Mv No.79/Ferrous Fumarate [Flintstones with Iron Tab Chew] 18 mg PO DAILY Metformin [Glucophage] 1,000 mg PO BID Discontinued Clopidogrel Bisulfate [Plavix] 75 mg PO DAILY #0 Sotalol [Betapace] 80 mg PO BID - Disposition 01 Discharged Home, Self-Care <Shemar Bishop - Last Filed: 12/21/16 14:12> Discharge Information Date of admission: 12/18/16 08:56 Attending Physician: Shemar Bishop MD Primary care physician: Geovani Mtz II, MD Consults: 12/18/16 11:32 Physician Consult [CONS] Routine Consulting Provider: Geovani Mtz II Reason For Exam: DM, Anemia Ordering Provider has Notified Director Of Safety And Security: Yes - Discharge Diagnosis (1) Atrial flutter Qualifiers: Atrial flutter type: unspecified Qualified Code(s): I48.92 - Unspecified atrial flutter Status: Chronic (2) CHF (congestive heart failure) Qualifiers: Congestive heart failure type: systolic Congestive heart failure chronicity : acute on chronic Qualified Code(s): I50.23 - Acute on chronic systolic ( congestive) heart failure Status: Acute (3) Coronary arteriosclerosis in [place] artery Status: Chronic (4) Hypertension Qualifiers: Hypertension type: essential hypertension Qualified Code(s): I10 - Essential (primary) hypertension Status: Chronic (5) Hyperlipidemia Qualifiers: Hyperlipidemia type: mixed hyperlipidemia Qualified Code(s): E78.2 - Mixed hyperlipidemia Status: Chronic (6) Carotid artery stenosis Qualifiers: Laterality: unspecified laterality Qualified Code(s): I65.29 - Occlusion and stenosis of unspecified carotid artery Status: Chronic (7) Pacemaker Status: Chronic (8) Diabetes mellitus type 2 in nonobese Status: Chronic (9) Anemia Status: Chronic (10) Atrial fibrillation Status: Acute - Laboratory Labs: 12/20/16 08:22 12/20/16 08:22 Hospital Course Hospital course: After examining the patient I agree with the above assessment. I am involved in the formulation of the patient's plan of care. Exam Vital signs: Temp Pulse Resp BP Pulse Ox 97.7 F 72 22 108/55 96 12/20/16 15:00 12/20/16 15:00 12/20/16 15:00 12/20/16 15:00 12/20/16 15:00 Results 12/20/16 08:22 12/20/16 08:22
[2016-12-20] MEDS ORDERED: CARVEDILOL 25 MG TABLET PO SCH (17:30)
[2016-12-21] MEDS ORDERED: AMIODARONE 200 MG TABLET PO SCH (09:00)
== END 2016-12-20 17:25 | disposition home or self-care (01) | DRG 308 ==
LOC: ED 07:17 → CCU 08:56
PROVIDERS: ADMIT Internal Medicine Cardiovascular Disease; ATTEND Internal Medicine Cardiovascular Disease

== ENCOUNTER 2017-03-25 08:01 | Inpatient (IN) ==
[2017-03-25] MEDS ORDERED: CLINDAMYCIN PB 600 MG/50 ML BAG IV SCH (08:15)
--- NOTE | 2017-03-25 08:17 | Emergency Department Report ---
Extremity Problem HPI - General Chief complaint: Extremity Problem,Nontraumatic Stated complaint: left arm swelled up,red,infected Time Seen by Provider: 03/25/17 08:07 Source: patient, family Mode of arrival: ambulatory Limitations: no limitations - History of Present Illness HPI Narrative: 81yo man presents to the ER for evaluation of a red, swollen LUE. Pt has a lesion above his left AC fossa from a 'bug bite'; today, it is draining serous fluid. Rest of his arm was normal when he went to bed. Overnight, his left forearm has become red, hot, swollen, and TTP. Pt has never had sx like this before. Has a h/o A-fib (takes xarelto); has a pacemaker in his left cephalic vein. MD Complaint: extremity swelling Onset (ago): hour(s) Consistency: constant Location: left, upper extremity Severity scale (1-10): 6 Quality: burning, aching Radiation: none Relieving factors: nothing Exacerbating factors: range of motion, exertion, palpation Associated symptoms: denies other symptoms - Related Data Home Medications Medication Instructions Recorded Confirmed Glimepiride 2 mg PO DAILY #0 01/07/13 03/25/17 Famotidine [Pepcid] 20 mg PO BID #0 tab 09/10/14 03/25/17 Rivaroxaban [Xarelto] 20 mg PO DAILY #30 10/14/15 03/25/17 Lisinopril [Prinivil] 10 mg PO DAILY 12/18/16 03/25/17 Metformin [Glucophage] 1,000 mg PO BID 12/18/16 03/25/17 Pedi Mv No.79/Ferrous Fumarate 18 mg PO DAILY 12/18/16 03/25/17 [Flintstones with Iron Tab Chew] Atorvastatin [Lipitor] 20 mg PO HS 03/25/17 03/25/17 Furosemide [Lasix] 20 mg PO WL 03/25/17 03/25/17 Furosemide [Lasix] 40 mg PO DAILY 03/25/17 03/25/17 Pantoprazole Tab [Protonix Tab] 40 mg PO DAILY 03/25/17 03/25/17 Sacubitril/Valsartan 24-26 1 tab PO BID 03/25/17 03/25/17 [Entresto 24 mg-26 mg Tablet] Previous Rx's Medication Instructions Recorded Amiodarone [Pacerone] 200 mg PO DAILY #30 12/20/16 Carvedilol [Coreg] 25 mg PO BIDWM #60 tab 12/20/16 DiltiaZEM CD [Cardizem Cd] 240 mg PO DAILY #30 cap 12/20/16 Potassium Chloride [K-Dur] 20 meq PO BIDWM #60 tab 12/20/16 Allergies Allergy/AdvReac Type Severity Reaction Status Date / Time No Known Allergies Allergy Verified 03/25/17 08:14 Review of Systems All systems: reviewed and negative except as stated Musculoskeletal: Reports: as per HPI Integumentary: Reports: as per HPI, rash, swelling PFSH Patient Stated Medical History Cataracts Yes Dysphagia Yes: "things stick in my throat" Macular Degeneration Yes Angina Yes: 4 yrs ago Cardiac Arrhythmia Yes: A - 2016 Congestive Heart Failure Yes Hypertension Yes Myocardial Infarction Yes: 4 yrs ago Sleep Apnea No Other Respiratory Yes: short of breath bc he's anemic Diabetes Mellitus Type 1 Yes Diabetes Mellitus Type 2 Yes Other GI Yes: blood in stool Hx Benign Prostatic Yes Hyperplasia Hx Incontinence Yes Hx Urinary Tract Infection Yes Anemia Yes: currently anemic Osteoarthritis Yes Shingles Yes Surgical History: Cardiac catheterization with stent placement. Right CEA. Right LE fracture/repair 1976 - Social History Smoking status: Never smoker Physical Exam - Limitations Limitations: no limitations - General General appearance: alert, in no apparent distress, obese - Normal Exams: Head:: Normocephalic without trauma Eyes:: Pupils are PERRLA w/ EOMI, No scleral icterus, irritation, or foreign bodies noted ENMT:: No facial trauma, nasal exudates, pharyngeal erythema, or exudates are noted Neck:: Full range of motion, without adenopathy Chest/Respirations:: Clear all black, with good airflow, and symmetry bilaterally Abdomen:: Bowel sounds positive, soft, non-tender, non-distended, no hepatosplenomegaly, masses or bruits noted Lymphatic:: No lymphadenopathy Neurological:: Patient is alert, and oriented Psychiatric:: Patient exhibits, appropriate attention - Cardiovascular Cardiovascular exam: Present: irregular rhythm, normal heart sounds, +S1, +S2. Absent: regular rate, normal rhythm, systolic murmur, diastolic murmur, +S3, +S4 - Expanded Upper Extremity Exam Forearm/Wrist exam: Present: full ROM, tenderness, swelling (Left), erythema, other (Left forearm is TTP, swollen, red, and warm. Hand, distal to swelling is cool and pulses/cap refill are sluggish.). Absent: normal inspection, abrasion , laceration, ecchymosis, deformity, crepitus, dislocation, tenderness over anatomical snuff box, pain with axial thumb loading - Skin Skin exam: Present: warm, dry, intact, rash, erythema Course - Consultations Consultation #1: Hospitalist: Time: 10:02 Vital Signs Temperature 97.8 F 03/25/17 08:03 Pulse Rate 111 H 03/25/17 08:03 Respiratory Rate 22 03/25/17 08:03 Blood Pressure 94/52 03/25/17 08:03 Pulse Oximetry 91 03/25/17 08:03 Temperature 97.8 F 03/25/17 08:03 Pulse Rate 111 H 03/25/17 08:03 Respiratory Rate 22 03/25/17 08:03 Blood Pressure 94/52 03/25/17 08:03 Pulse Oximetry 91 03/25/17 08:03 Extremity Problem, Nontraumati - MDM Narrative Medical decision making narrative: Pt with circumfirential left forearm cellulitis, with resulting cooling of hand and sluggish cap refill. US shows tri-phasic blood flow down arm; no DVT. Contacted hospitalist for admission for continued treatment and observation to ensure pt improves and blood supply remains patent. - Differential Diagnosis Likely: gout, cellulitis, superficial thrombophlebitis, deep venous thrombosis of upper extremity - Medical Records Attestation: I reviewed the patient's medical records. - Lab Data Attestation: I reviewed the patient's lab results. Result diagrams: 03/25/17 08:28 03/25/17 08:28 Lab Results 03/25/17 03/25/17 03/25/17 Range/Units 08:28 08:28 08:28 WBC 17.9 H (4.5-11.0) T/MM3 RBC 4.06 L (4.50-5.90) M/MM3 Hgb 9.1 L (13.5-17.5) GM/DL Hct 30.9 L (41-53) % MCV 76.1 L (80-100) UM3 MCH 22.4 L (26-34) UUG MCHC 29.4 L (31-37) GM/DL RDW Std Deviation 53.0 H (36.9-50.2) FL Plt Count 228 (130-400) T/MM3 MPV 10.7 (9.4-12.4) UM3 Immature Gran % (Auto) Not performed Neut % (Auto) Not performed Lymph % (Auto) Not performed [place] % (Auto) Not performed Eos % (Auto) Not performed Baso % (Auto) Not performed Neut # Not performed Lymph # Not performed [place] # Not performed Eos # Not performed Baso # Not performed Abs Immat Gran (auto) Not performed Neutrophils % (Manual) 89.0 H (33-66) % Band Neutrophils % 4.0 (0-6) % Lymphocytes % (Manual) 5.0 L (23-45) % Monocytes % (Manual) 1.0 (0-9.0) % Eosinophils % (Manual) 1.0 (0-4) % Neutrophils # (Manual) 15.9 H (1.8-7.7) T/MM3 Band Neutrophils # 0.7 T/MM3 Lymphocytes # (Manual) 0.9 L (1-4.8) T/MM3 Monocytes # (Manual) 0.2 (0-0.8) T/MM3 Eosinophils # (Manual) 0.2 (0-0.5) T/MM3 Poikilocytosis 2+ Anisocytosis 2+ Ovalocytes 3+ Mehnaz Cells 2+ Schistocytes 1+ RBC Morph Comment Abnormal Turbidity < 20 (0-20) Sodium 142 (134-144) MEQ/L Potassium 5.7 H (3.6-5) MEQ/L Chloride 110 H (98-107) MEQ/L Carbon Dioxide 20 L (22-30) MEQ/L Anion Gap 12 (5-15) MEQ/L BUN 28.0 H (9-20) MG/DL Creatinine 1.6 H (0.8-1.5) MG/DL GFR Calculation 42 BUN/Creatinine Ratio 18 (6-26) RATIO Glucose 145 H (75-110) MG/DL Calculated Osmolality 282 H (261-280) MOSM/KG Calcium 9.4 (8.4-10.2) MG/DL Total Bilirubin 0.90 (0.20-1.30) MG/DL Icterus Index < 2 (0-7) AST 33 (17-59) U/L ALT 29 (21-72) U/L Alkaline Phosphatase 21 L (38-126) U/L Total Protein 6.9 (6.3-8.2) G/DL Albumin 3.8 (3.5-5.0) G/DL Globulin 3.1 (2.4-3.6) G/DL Albumin/Globulin Ratio 1.2 (1.1-2.2) RATIO Lipase 65 (23-300) U/L Plasma Lactate 1.9 (0.6-2.2) MMOL/L Procalcitonin 0.09 NG/ML Specimen Hemolysis 68 H (0-25) - Radiology Data Attestation: I reviewed the patient's radiology results. LUE DVT US: Normal left upper extremity duplex venous ultrasound. LUE aterial US: No acute findings. No evidence of occlusion or significant narrowing. - EKG Data EKG #1 EKG attestation: Yes: I reviewed and interpreted this EKG. EKG results narrative: Paced rhythm at 76bpm. No evidence of ischemia. Disposition Clinical Impression: Cellulitis Qualifiers: Site of cellulitis: extremity Site of cellulitis of extremity: upper extremity Laterality: left Qualified Code(s): L03.114 - Cellulitis of left upper limb Disposition: To [facility] Condition: Stable Time of Disposition: 10:13 - Seen By: physician
[2017-03-25] MEDS: LR 1,000 ML IV SCH ×4 (08:28→14:38)
[2017-03-25 11:24] VITALS: BMI 35.6
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
--- NOTE | 2017-03-25 13:57 | Pharmacy Consult-Antibiotics ---
Pharmacy Consult-Vancomycin - Laboratory Information WBC 17.9 T/MM3 (4.5-11.0) H 03/25/17 08:28 BUN 28.0 MG/DL (9-20) H 03/25/17 08:28 Creatinine 1.6 MG/DL (0.8-1.5) H 03/25/17 08:28 Procalcitonin 0.09 NG/ML 03/25/17 08:28 - Consult Information Consult for vancomycin therapy noted for Mr Samson, who is 81yo and weighs 80.2kg. His serum creatinine is 1.6 mg/dl. He has a diagnosis of cellulitis. Will begin with vancomycin 1000mg IV q18h. Will continue to monitor renal function and adjust dosing if necessary. Thank you.
[2017-03-25] MEDS ORDERED: ONDANSETRON 4 MG/2 ML INJECTION IVP PRN (14:21)
[2017-03-25] MEDS ORDERED: ACETAMINOPHEN 325 MG TABLET PO PRN (14:21)
[2017-03-25] MEDS: AMIODARONE 200 MG TABLET PO SCH (16:38)
[2017-03-25] MEDS: INSULIN ASPART 100unit/ml INJECTION SQ PRN (17:50)
[2017-03-25] MEDS: CARVEDILOL 25 MG TABLET PO SCH (17:52)
[2017-03-25] MEDS: METFORMIN 1,000 MG TABLET PO SCH (17:53)
[2017-03-25] MEDS: SENNOSIDES 8.6 MG TABLET PO SCH (21:07)
[2017-03-25] MEDS: SACUBITRIL/VALSARTAN 24/26mg TABLET PO SCH (21:08)
[2017-03-25] MEDS: ATORVASTATIN 20 MG TABLET PO SCH (21:08)
[2017-03-25] MEDS: FAMOTIDINE 20 MG TABLET PO SCH (21:09)
[2017-03-26] MEDS: INSULIN ASPART 100unit/ml INJECTION SQ PRN ×4 (06:13→21:28)
[2017-03-26] MEDS: CARVEDILOL 25 MG TABLET PO SCH ×2 (08:42→17:11)
[2017-03-26] MEDS: AMIODARONE 200 MG TABLET PO SCH (08:42)
[2017-03-26] MEDS: GLIMEPIRIDE 2 MG TABLET PO SCH (08:43)
[2017-03-26] MEDS: METFORMIN 1,000 MG TABLET PO SCH (08:43)
[2017-03-26] MEDS: DILTIAZEM CD 240 MG CAPSULE PO SCH (08:43)
[2017-03-26] MEDS: SACUBITRIL/VALSARTAN 24/26mg TABLET PO SCH ×2 (08:44→20:08)
[2017-03-26] MEDS: RIVAROXABAN 20 MG TABLET PO SCH (08:45)
[2017-03-26] MEDS: FAMOTIDINE 20 MG TABLET PO SCH ×2 (08:46→20:08)
[2017-03-26] MEDS ORDERED: IRON PO SCH (09:00)
[2017-03-26] MEDS ORDERED: [UNRECOGNIZED DRUG - OTHER] PO SCH (09:00)
[2017-03-26] MEDS ORDERED: POM PANTOPRAZOLE 40 MG TABLET PO SCH (09:00)
--- NOTE | 2017-03-26 09:22 | Ultrasound Report ---
Indication: LUE swelling, Pacer, sluggish cap refill PROCEDURE: US venous doppler UE LT: Encounter: Initial Comparison: None Technique: Color Doppler duplex and grayscale sonographic imaging of the left upper extremity was performed. FINDINGS: There is no evidence for acute deep venous thrombosis in the left arm. The left internal jugular, subclavian, axillary and paired brachial veins were evaluated; compression and augmentation were applied where possible. In addition, color and pulsed Doppler demonstrate appropriate spontaneous flow, cardiac pulsatility and variation with respiration. IMPRESSION: No evidence of acute DVT in the left upper extremity. There is a preliminary report by [facility]. .
--- NOTE | 2017-03-26 09:25 | Ultrasound Report ---
Indication: Swollen UE, cool arm, pacer PROCEDURE: US arterial duplex UE LT: Encounter: Initial Comparison: None Technique: Grayscale and color Doppler duplex sonographic imaging of the left upper extremity arterial system was performed. Findings: Normal waveforms seen throughout the left upper extremity arteries. No occlusion or significant plaque. No focal stenosis. Impression: Negative exam. There is a preliminary report by [facility]. .
--- NOTE | 2017-03-26 10:40 | XRay Report ---
INDICATION: SOA PROCEDURE: CHEST 2-VIEWS UPRIGHT (PA & LAT) Encounter: Initial COMPARISON: March 13, 2017 FINDINGS: The lungs appear grossly stable with increased opacity in the lower lobes bilaterally. Small bilateral pleural effusions are slightly larger. Upper lung black are clear. No pneumothorax. Cardiac silhouette remains enlarged with a left pacemaker in place. Mediastinal contours are stable. Impression: Continued findings of mild CHF with slight increase in small effusions. .
--- NOTE | 2017-03-26 13:48 | Progress Note ---
Subjective: Mr. Samson reports that his arm is not as painful today and not quite as swollen as yesterday. He continues to ooze clear fluid. He is not aware of any fevers or chills overnight. He tolerated CPAP well overnight and his reports that he's been sleeping a lot recently and falls asleep every time he sits down. Respiratory therapy initiated CPAP shortly after the nocturnal oximetry was started when oxygen saturations repetitively dropped into the low 70s. Episodes of apnea lasted 15-20 seconds. Patient denies nausea or vomiting, is ambulating to the bathroom with assistance because he feels "wobbly on his feet", and reports his appetite is improving compared to yesterday. Objective Vital signs: Temperature 97.6 F 03/26/17 12:26 Pulse Rate 59 L 03/26/17 12:26 Respiratory Rate 20 03/26/17 12:26 Blood Pressure 105/56 03/26/17 12:26 Pulse Oximetry 99-2L 03/26/17 12:26 EXAM General-NAD, more alert and interactive than he was yesterday HEENT-oropharynx clear, sclera anicteric Lungs-respirations nonlabored, decreased air flow, breath sounds clear anteriorly/posteriorly Cardiac-regular rhythm Abd-obese, soft, nontender, bowel sounds present Ext-trace edema lower extremities, +2 edema left upper extremity Skin-erythema in the marked area of the left forearm extending about 5-10 cm above the left elbow minimally changed from yesterday, remains within the marked lines, 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 Serous drainage persists from the area above the elbow; fingers swollen but hand is not erythematous. Psych-calm, cooperative - Height/Weight/BMI: Height 1.5 m Weight 82.2 kg Body Mass Index 35.6 Results - Labs CBC & Chem 7: 03/26/17 05:34 03/26/17 05:34 Microbiology Results: Blood cultures 2 negative after 1 day - ECG Data Tracing #1 I reviewed this ECG and interpreted as documented below: (telemetry reviewed- pacing majority of time) Assessment and Plan (1) Cellulitis Current visit: Yes Status: Acute DVT Prophylaxis: Xarelto Resuscitation Status: Full Code Assessment and Plan: Assessment Cellulitis, LUE with sepsis Hyperkalemia (POA) Hypotension (POA) Acute kidney injury (POA) Atrial fibrillation, s/p ablation recently Anemia, chronic CHF CKD, stage 3, baseline creatinine 1.1-1.2 Hypertension Coronary artery disease Diabetes mellitus type 2 - A1c 7.4 in 03/02 Sleep apnea, severe Dysphagia BPH Urinary incontinence Osteoarthritis Macular degeneration Plan Minor improvement in the left arm overnight, white count down slightly and patient has been afebrile however there is persistent edema with significant swelling of the digits and significant erythema involving majority of the arm from the wrist to a little above the elbow. Creatinine is up compared to admission and well above baseline. I don't believe patient is stable to convert to oral antibiotics at this time. Cultures pending. Continue vancomycin. Extensive imaging of the left arm yesterday demonstrated no thrombus or arterial compromise. ed by myself demonstrating cardiomegaly, pacemaker left upper chest wall, small bilateral pleural effusions. Creatinine 1.6 with baseline 1.1-1.2. Patient tolerated CPAP well overnight. Will require formal sleep study in the near future. ABG pending. GI workup anticipated for anemia, has been delayed after recent cardiac ablation. Hyperkalemia has corrected. BUN/creatinine up from yesterday, did not receive diuretics yesterday, received fluids in ER. Chest x-ray suggested mild heart failure. Metformin on hold pending stabilization of renal function. Blood pressure is low normal but no overt hypotension demonstrated today. Continue diltiazem, amiodarone, and Entresto due to underlying cardiac disease. PT/OT consults. Discussed with RT, case management, and nursing. Converted to inpatient due to ongoing need for IV antibiotics and due to worsening renal function. Sepsis Assessment - Evaluation Sepsis screening result: No Definite Risk Hospital Course Summary Disclaimer: The visit summary below is not to be considered part of the above Progress Note. Hospital Course: 03/25/17 - hospital admission for observation Assessment Cellulitis to the left upper extremity Hyperkalemia (POA) Hypotension (POA) Azotemia (POA) Atrial fibrillation Anemia CHF Hypertension Coronary artery disease Diabetes mellitus type 2 - A1c 7.4 in 03/02 Sleep apnea Dysphagia BPH Urinary incontinence Osteoarthritis Macular degeneration Plan Admit patient to observation status under the care of the hospitalist team, Dr. Carpenter attending, for IV antibiotic treatment of his cellulitis. Pharmacy consulted for vancomycin dosing. He will continue Xarelto for his atrial fibrillation. Telemetry to monitor rate and rhythm given his shortness of breath. Chest x-ray to evaluate shortness of breath. Given his hyperkalemia, will hold his potassium and sacubitril/valsartan Given his hypotension and azotemia, will hold Lasix temporarily. Speech therapy consult given his dysphagia Check urinalysis for laboratory completeness Care to return to patient's PCP, Dr. Mtz, upon discharge. 03/26/17 Minor improvement in the left arm overnight, white count down slightly and patient has been afebrile however there is persistent edema with significant swelling of the digits and significant erythema involving majority of the arm from the wrist to a little above the elbow. Creatinine is up compared to admission and well above baseline. I don't believe patient is stable to convert to oral antibiotics at this time. Cultures pending. Continue vancomycin. Extensive imaging of the left arm yesterday demonstrated no thrombus or arterial compromise. ed by myself demonstrating cardiomegaly, pacemaker left upper chest wall, small bilateral pleural effusions. Creatinine 1.6 with baseline 1.1-1.2. Patient tolerated CPAP well overnight. Will require formal sleep study in the near future. ABG pending. GI workup anticipated for anemia, has been delayed after recent cardiac ablation. Hyperkalemia has corrected. BUN/creatinine up from yesterday, did not receive diuretics yesterday, received fluids in ER. Chest x-ray suggested mild heart failure. Metformin on hold pending stabilization of renal function. Blood pressure is low normal but no overt hypotension demonstrated today. Continue diltiazem, amiodarone, and Entresto due to underlying cardiac disease. PT/OT consults. Converted to inpatient due to ongoing need for IV antibiotics and due to worsening renal function.
[2017-03-26] MEDS: SENNOSIDES 8.6 MG TABLET PO SCH (20:08)
[2017-03-26] MEDS: ATORVASTATIN 20 MG TABLET PO SCH (20:08)
[2017-03-27] MEDS: PANTOPRAZOLE 40 MG TABLET PO SCH (06:20)
[2017-03-27] MEDS: INSULIN ASPART 100unit/ml INJECTION SQ PRN ×3 (06:20→21:02)
[2017-03-27] MEDS: RIVAROXABAN 20 MG TABLET PO SCH (08:55)
[2017-03-27] MEDS: MULTIVIT WITH IRON PO SCH (08:55)
[2017-03-27] MEDS: CARVEDILOL 25 MG TABLET PO SCH ×2 (08:56→17:34)
[2017-03-27] MEDS: AMIODARONE 200 MG TABLET PO SCH (08:56)
[2017-03-27] MEDS: FAMOTIDINE 20 MG TABLET PO SCH ×2 (08:56→20:43)
[2017-03-27] MEDS: DILTIAZEM CD 240 MG CAPSULE PO SCH (08:56)
[2017-03-27] MEDS: GLIMEPIRIDE 2 MG TABLET PO SCH (08:56)
[2017-03-27] MEDS: SACUBITRIL/VALSARTAN 24/26mg TABLET PO SCH ×2 (08:56→20:43)
--- NOTE | 2017-03-27 11:03 | Progress Note ---
Subjective: F/U: Cellulitis of Left upper ext Doing okay this morning. No f/c. Swelling and redness to left arm decreasing- also notes improvement to range of motion of this ext. No significant pain. Breathing doing fair-notes SOA and cough, no sputum. No pain with breathing. Tolerating CPAP at night, but feels the pressure slightly high. No chest pressure, pain of palpitations. Eating well without nausea or ab pain. Stools moving. Urinating well. Worked well with therapy-they advised he needs to walk 3 times a day (pt feels up to this). Objective Vital signs: Temperature 98.2 F 03/27/17 07:00 Pulse Rate 65 03/27/17 08:00 Respiratory Rate 12 03/27/17 07:00 Blood Pressure 112/54 03/27/17 07:00 Pulse Oximetry 96 03/27/17 10:15 Height/Weight/BMI: Weight 82.9 kg - Constitutional Present: moderate distress, well nourished, obese, cooperative - Routine HEENT Exam Head: Present: normocephalic, atraumatic Eye: Present: EOMI, PERRL ENT: Present: mucous membranes moist - Routine Respiratory Exam Present: decreased breath sounds, prolonged expiratory phase, distant breath sounds, diminished air movement. Absent: respiratory distress, wheezes, crackles - Routine Cardiovascular Exam Present: RRR, no murmur - Routine Abdominal Exam Present: soft, normoactive bowel sounds. Absent: non distended, non tender - Routine Extremities Exam Present: cyanosis, clubbing, edema (+3 bilateral LE ), pulses intact - Routine Skin Exam Present: erythema (Left arm ), warm. Absent: mottling - Routine Neurological Exam Present: alert, oriented X3, CN II-XII intact, moving all extremities, vision grossly intact, hearing grossly intact. Absent: sensory deficit, motor deficit - Routine Psychiatric Exam Present: normal affect, normal thought process, cooperative. Absent: anxious, agitated Results - Labs CBC & Chem 7: 03/27/17 06:06 03/27/17 06:06 Assessment and Plan (1) Cellulitis Current visit: Yes Status: Acute DVT Prophylaxis: Xarelto GI Prophylaxis: Protonix Resuscitation Status: Full Code Assessment and Plan: Assessment Cellulitis, LUE with sepsis Hyperkalemia (POA) - resolved Hypotension (POA) -resolved Acute kidney injury (POA) CKD, stage 3, baseline creatinine 1.1-1.2 Atrial fibrillation, s/p ablation recently Anticoagulated with Xarelto Anemia, chronic CHF - Chronic systolic heart failure -- EF 30% on ECHO 12/31 Coronary artery disease Hypertension Diabetes mellitus type 2 - A1c 7.4 in 03/02 Sleep apnea, severe - needing sleep study Dysphagia BPH Urinary incontinence Osteoarthritis Macular degeneration Obesity with BMI 36.9 Plan Continue vancomycin for coverage of cellulitis. Clinically improving. White count decreased to 9.0. CM setting up outpatient sleep study. Discussed CPAP with patient. Does seem agreeable to this treatment. Creatinine with slight increase to 1.8 - will need to continue to monitor. Continue diltiazem, amiodarone, and Entresto due to underlying cardiac disease. Requiring oxygen during day (at home only uses at night). Will give one time dose of Lasix 40mg orally due to O2 needed and increased vascularity on CXR. Monitor hemoglobin. With patients underlying heart disease and hypoxia, may need transfusion. Will check Iron and Ferritin due to anemia. Start Iron and vitamin C due to anemia with microcytic markers. PT/OT consult initiated - pt to ambulate TID with assistance. Recheck CMP, Mg, and CBC in am due to cellulitis, medication us and CKD. Case discussed with CM. Time spent with patient care 35 minutes. - Time spent with patient greater than 35 minutes Sepsis Assessment - Evaluation Sepsis screening result: No Definite Risk Hospital Course Summary Disclaimer: The visit summary below is not to be considered part of the above Progress Note. Hospital Course: 03/25/17 - Hospital admission for observation Assessment Cellulitis to the left upper extremity Leukocytosis Hyperkalemia (POA) Hypotension (POA) Azotemia (POA) Atrial fibrillation Anemia CHF Hypertension Coronary artery disease Diabetes mellitus type 2 - A1c 7.4 in 03/02 Sleep apnea Dysphagia BPH Urinary incontinence Osteoarthritis Macular degeneration Obesity Plan Admit patient to observation status under the care of the hospitalist team, Dr. Carpenter attending, for IV antibiotic treatment of his cellulitis. Pharmacy consulted for vancomycin dosing. He will continue Xarelto for his atrial fibrillation. Telemetry to monitor rate and rhythm given his shortness of breath. Chest x-ray to evaluate shortness of breath. Given his hyperkalemia, will hold his potassium and sacubitril/valsartan. Given his hypotension and azotemia, will hold Lasix temporarily. Speech therapy consult given his dysphagia. Check urinalysis for laboratory completeness. Care to return to patient's PCP, Dr. Mtz, upon discharge. 03/26/17 Minor improvement in the left arm overnight, white count down slightly and patient has been afebrile however there is persistent edema with significant swelling of the digits and significant erythema involving majority of the arm from the wrist to a little above the elbow. Creatinine is up compared to admission and well above baseline. I don't believe patient is stable to convert to oral antibiotics at this time. Cultures pending. Continue vancomycin. Extensive imaging of the left arm yesterday demonstrated no thrombus or arterial compromise. ed by myself demonstrating cardiomegaly, pacemaker left upper chest wall, small bilateral pleural effusions. Creatinine 1.6 with baseline 1.1-1.2. Patient tolerated CPAP well overnight. Will require formal sleep study in the near future. ABG pending. GI workup anticipated for anemia, has been delayed after recent cardiac ablation. Hyperkalemia has corrected. BUN/creatinine up from yesterday, did not receive diuretics yesterday, received fluids in ER. Chest x-ray suggested mild heart failure. Metformin on hold pending stabilization of renal function. Blood pressure is low normal but no overt hypotension demonstrated today. Continue diltiazem, amiodarone, and Entresto due to underlying cardiac disease. PT/OT consults. Converted to inpatient due to ongoing need for IV antibiotics and due to worsening renal function. 03/27/17 Continue vancomycin for coverage of cellulitis. Clinically improving. White count decreased to 9.0. CM setting up outpatient sleep study. Discussed CPAP with patient. Does seem agreeable to this treatment. Creatinine with slight increase to 1.8 - will need to continue to monitor. Continue diltiazem, amiodarone, and Entresto due to underlying cardiac disease. Requiring oxygen during day (at home only uses at night). Will give one time dose of Lasix 40mg orally due to O2 needed and increased vascularity on CXR. Monitor hemoglobin. With patients underlying heart disease and hypoxia, may need transfusion. Will check Iron and Ferritin due to anemia. Start Iron and vitamin C due to anemia with microcytic markers. PT/OT consult initiated - pt to ambulate TID with assistance. Recheck CMP, Mg, and CBC in am due to cellulitis, medication us and CKD.
--- NOTE | 2017-03-27 11:15 | Pharmacy Consult-Antibiotics ---
Pharmacy Consult-Vancomycin - Laboratory Information WBC 9.0 T/MM3 (4.5-11.0) 03/27/17 06:06 BUN 38.0 MG/DL (9-20) H 03/27/17 06:06 Creatinine 1.8 MG/DL (0.8-1.5) H 03/27/17 06:06 Procalcitonin 0.09 NG/ML 03/25/17 08:28 Vancomycin Trough 16.45 UG/ML (15-20) 03/27/17 06:06 - Consult Information vancomycin day 3: 81 y.o. Male admitted to [facility] with swelling, redness and seepage of left arm. Vancomycin per pharmacy protocol ordered empirically for cellulitis of left arm. goal Vanco trough range= 15 to 20 mcg/ml, 03/27/17 vanco trough= 16.45 mcg/ml. This falls within goal range. Continue current dose. SCr= 1.8 mg/dL this is up slightly from admission level of 1.6 mg/dL. Pharmacy will continue to monitor and adjust as needed. Thank you, Skyla Baeza formerly [facility]
[2017-03-27] MEDS ORDERED: FUROSEMIDE 40 MG TABLET PO ONE (11:18)
[2017-03-27] MEDS: FERROUS SULFATE 324 MG TABLET PO SCH (11:42)
[2017-03-27] MEDS: SENNOSIDES 8.6 MG TABLET PO SCH (20:43)
[2017-03-27] MEDS: SALINE FLUSH 10ml SYRINGE IVF PRN (20:43)
[2017-03-27] MEDS: ATORVASTATIN 20 MG TABLET PO SCH (20:43)
[2017-03-28] MEDS: SALINE FLUSH 10ml SYRINGE IVF PRN ×2 (01:04→18:22)
[2017-03-28] MEDS: PANTOPRAZOLE 40 MG TABLET PO SCH (05:59)
[2017-03-28] MEDS: INSULIN ASPART 100unit/ml INJECTION SQ PRN ×3 (06:06→22:02)
[2017-03-28] MEDS: AMIODARONE 200 MG TABLET PO SCH (08:25)
[2017-03-28] MEDS: FAMOTIDINE 20 MG TABLET PO SCH ×2 (08:25→21:10)
[2017-03-28] MEDS: CARVEDILOL 25 MG TABLET PO SCH ×2 (08:25→17:40)
[2017-03-28] MEDS: MULTIVIT WITH IRON PO SCH (08:25)
[2017-03-28] MEDS: DILTIAZEM CD 240 MG CAPSULE PO SCH (08:26)
[2017-03-28] MEDS: SACUBITRIL/VALSARTAN 24/26mg TABLET PO SCH ×2 (08:26→21:10)
[2017-03-28] MEDS: GLIMEPIRIDE 2 MG TABLET PO SCH (08:26)
[2017-03-28] MEDS: FERROUS SULFATE 324 MG TABLET PO SCH (08:26)
[2017-03-28] MEDS: RIVAROXABAN 20 MG TABLET PO SCH (08:26)
[2017-03-28] MEDS: ASCORBIC ACID 500 MG TABLET PO SCH ×2 (08:30→11:43)
--- NOTE | 2017-03-28 11:03 | Progress Note ---
<Lena Flores V - Last Filed: 03/28/17 10:58> Subjective: Kleber is seen this morning in follow up. He is up and working with OT during exam. Overall he feels that his left arm is feeling better. Erythema and swelling improving, He reports mild discomfort to LUE. Currently on 2 liters by nasal canula. He is concerned that he is involved in a clinical trial at [facility] and is due for a Cholesterol med injection tomorrow. Objective Vital signs: Temperature 97.8 F 03/28/17 07:00 Pulse Rate 77 03/28/17 07:00 Respiratory Rate 16 03/28/17 07:00 Blood Pressure 107/59 03/28/17 07:00 Pulse Oximetry 93 03/28/17 07:00 Height/Weight/BMI: Weight 82.9 kg - Constitutional Present: no acute distress, well nourished, well developed - Routine HEENT Exam Eye: Present: EOMI ENT: Present: mucous membranes moist, dentition normal - Routine Respiratory Exam Present: CTA bilaterally. Absent: wheezes - Routine Cardiovascular Exam Present: RRR, S1, S2. Absent: murmur - Routine Abdominal Exam Present: soft, normoactive bowel sounds, non distended. Absent: tenderness - Routine Extremities Exam Present: edema (LUE, erythema), pulses intact - Routine Skin Exam Present: intact, dry, warm - Routine Neurological Exam Present: alert, oriented X3, CN II-XII intact - Routine Lymphatic Exam Lymphatic: Absent: adenopathy - Routine Psychiatric Exam Present: normal affect Results - Labs CBC & Chem 7: 03/28/17 04:51 03/28/17 04:51 Assessment and Plan (1) Cellulitis Current visit: Yes Status: Acute Assessment and Plan: Assessment Cellulitis, LUE with sepsis Hyperkalemia (POA) - resolved Hypotension (POA) -resolved Acute kidney injury (POA) CKD, stage 3, baseline creatinine 1.1-1.2 Atrial fibrillation, s/p ablation recently Anticoagulated with Xarelto Anemia, chronic CHF - Chronic systolic heart failure -- EF 30% on ECHO 12/31 Coronary artery disease Hypertension Diabetes mellitus type 2 - A1c 7.4 in 03/02 Sleep apnea, severe - needing sleep study Dysphagia BPH Urinary incontinence Osteoarthritis Macular degeneration Obesity with BMI 36.9 Plan Contacted [id number] regarding current illness, hospitalization. Clinical coordinator will return call later today. Clinically LUE cellulitis continues to improve of current regimen of Vancomycin Discussed possible need to sleep study outpatient. Uses oxygen at night chronically however is requiring some during day. Wean down as able. Repeat Lasix PO for gentle diuresis Continue diltiazem, amiodarone, and Entresto due to underlying cardiac disease. Iron studies pending, supplement orally Encourage continued work with PT/OT for strengthening Continue to monitor labs routinely Sepsis Assessment - Evaluation Sepsis screening result: No Definite Risk Hospital Course Summary Disclaimer: The visit summary below is not to be considered part of the above Progress Note. Hospital Course: 03/25/17 - Hospital admission for observation Assessment Cellulitis to the left upper extremity Leukocytosis Hyperkalemia (POA) Hypotension (POA) Azotemia (POA) Atrial fibrillation Anemia CHF Hypertension Coronary artery disease Diabetes mellitus type 2 - A1c 7.4 in 03/02 Sleep apnea Dysphagia BPH Urinary incontinence Osteoarthritis Macular degeneration Obesity Plan Admit patient to observation status under the care of the hospitalist team, Dr. Carpenter attending, for IV antibiotic treatment of his cellulitis. Pharmacy consulted for vancomycin dosing. He will continue Xarelto for his atrial fibrillation. Telemetry to monitor rate and rhythm given his shortness of breath. Chest x-ray to evaluate shortness of breath. Given his hyperkalemia, will hold his potassium and sacubitril/valsartan. Given his hypotension and azotemia, will hold Lasix temporarily. Speech therapy consult given his dysphagia. Check urinalysis for laboratory completeness. Care to return to patient's PCP, Dr. Mtz, upon discharge. 03/26/17 Minor improvement in the left arm overnight, white count down slightly and patient has been afebrile however there is persistent edema with significant swelling of the digits and significant erythema involving majority of the arm from the wrist to a little above the elbow. Creatinine is up compared to admission and well above baseline. I don't believe patient is stable to convert to oral antibiotics at this time. Cultures pending. Continue vancomycin. Extensive imaging of the left arm yesterday demonstrated no thrombus or arterial compromise. ed by myself demonstrating cardiomegaly, pacemaker left upper chest wall, small bilateral pleural effusions. Creatinine 1.6 with baseline 1.1-1.2. Patient tolerated CPAP well overnight. Will require formal sleep study in the near future. ABG pending. GI workup anticipated for anemia, has been delayed after recent cardiac ablation. Hyperkalemia has corrected. BUN/creatinine up from yesterday, did not receive diuretics yesterday, received fluids in ER. Chest x-ray suggested mild heart failure. Metformin on hold pending stabilization of renal function. Blood pressure is low normal but no overt hypotension demonstrated today. Continue diltiazem, amiodarone, and Entresto due to underlying cardiac disease. PT/OT consults. Converted to inpatient due to ongoing need for IV antibiotics and due to worsening renal function. 03/27/17 Continue vancomycin for coverage of cellulitis. Clinically improving. White count decreased to 9.0. CM setting up outpatient sleep study. Discussed CPAP with patient. Does seem agreeable to this treatment. Creatinine with slight increase to 1.8 - will need to continue to monitor. Continue diltiazem, amiodarone, and Entresto due to underlying cardiac disease. Requiring oxygen during day (at home only uses at night). Will give one time dose of Lasix 40mg orally due to O2 needed and increased vascularity on CXR. Monitor hemoglobin. With patients underlying heart disease and hypoxia, may need transfusion. Will check Iron and Ferritin due to anemia. Start Iron and vitamin C due to anemia with microcytic markers. PT/OT consult initiated - pt to ambulate TID with assistance. Recheck CMP, Mg, and CBC in am due to cellulitis, medication us and CKD. 03/28/17 Plan Contacted [facility] regarding current illness, hospitalization. Clinical coordinator will return call later today. Clinically LUE cellulitis continues to improve of current regimen of Vancomycin Discussed possible need to sleep study outpatient. Uses oxygen at night chronically however is requiring some during day. Wean down as able. Repeat Lasix PO for gentle diuresis Continue diltiazem, amiodarone, and Entresto due to underlying cardiac disease. Iron studies pending, supplement orally Encourage continued work with PT/OT for strengthening Continue to monitor labs routinely <Jesus Williamson - Last Filed: 03/28/17 13:30> Objective Vital signs: Temperature 97.8 F 03/28/17 07:00 Pulse Rate 77 03/28/17 07:00 Respiratory Rate 16 03/28/17 07:00 Blood Pressure 107/59 03/28/17 07:00 Pulse Oximetry 93 03/28/17 07:00 Height/Weight/BMI: Weight 82.9 kg Results - Labs CBC & Chem 7: 03/28/17 04:51 03/28/17 04:51 Assessment and Plan (1) Cellulitis Current visit: Yes Status: Acute DVT Prophylaxis: Xarelto Resuscitation Status: Full Code Assessment and Plan: Assessment Cellulitis, LUE with sepsis Hyperkalemia (POA) - resolved Hypotension (POA) -resolved Acute kidney injury (POA) CKD, stage 3, baseline creatinine 1.1-1.2 Atrial fibrillation, s/p ablation recently Anticoagulated with Xarelto Anemia, chronic CHF - Chronic systolic heart failure -- EF 30% on ECHO 12/31 Coronary artery disease Hypertension Diabetes mellitus type 2 - A1c 7.4 in 03/02 Sleep apnea, severe - needing sleep study Dysphagia BPH Urinary incontinence Osteoarthritis Macular degeneration Obesity with BMI 36.9 Have independently interviewed and examined pt. Chart reviewed. Case discussed with CM and my [employer]. Care plan developed with my supervision; agree with above. Feels like he is improving. ROM in LUE improving, less redness and oozing. No pain. Working with therapy and gaining strength and endurance, but does still get tired and winded with activities. No chest pressure or pain. Eating well. No ab pain. Lungs: decreased bilaterally with basilar blunting and faint crackles. CV: regular AB: soft obese nt/nd +BS EXT: +3 edema MSE: awake alert appropriate Plan: Continue with Vancomycin. Home Lasix restarted - creatinine stable. Add TEJA hose to LE to help edema. Speech upgraded swallow to chopped meats - did well with this consistency. Continue activities to help functional status. Wean O2 as able (typically uses only at night at home) - will need sleep study in outpatient setting. Okay to continue his study medication - injects in abdomen. Monitor lab. Time spent with patient care 25 minutes. - Time spent with patient 25 - 35 minutes Hospital Course Summary Disclaimer: The visit summary below is not to be considered part of the above Progress Note. Addendum entered and electronically signed by Lena Flores APRN 03/28/17 11 :18: Spoke with [facility] research coordinator. Medication patient is receiving is Praluent injection for elevated cholesterol. Due for injection tomorrow 03/29.
[2017-03-28] MEDS: FUROSEMIDE 20 MG TABLET PO SCH (11:43)
[2017-03-28] MEDS: SENNOSIDES 8.6 MG TABLET PO SCH (21:10)
[2017-03-28] MEDS: ATORVASTATIN 20 MG TABLET PO SCH (21:10)
[2017-03-29] MEDS: PANTOPRAZOLE 40 MG TABLET PO SCH (05:40)
[2017-03-29] MEDS: INSULIN ASPART 100unit/ml INJECTION SQ PRN ×3 (06:46→18:13)
[2017-03-29] MEDS: AMIODARONE 200 MG TABLET PO SCH (08:24)
[2017-03-29] MEDS: DILTIAZEM CD 240 MG CAPSULE PO SCH (08:24)
[2017-03-29] MEDS: SACUBITRIL/VALSARTAN 24/26mg TABLET PO SCH ×2 (08:24→22:16)
[2017-03-29] MEDS: MULTIVIT WITH IRON PO SCH (08:24)
[2017-03-29] MEDS: CARVEDILOL 25 MG TABLET PO SCH ×2 (08:25→17:47)
[2017-03-29] MEDS: FERROUS SULFATE 324 MG TABLET PO SCH (08:25)
[2017-03-29] MEDS: RIVAROXABAN 20 MG TABLET PO SCH (08:25)
[2017-03-29] MEDS: GLIMEPIRIDE 2 MG TABLET PO SCH (08:25)
[2017-03-29] MEDS: FAMOTIDINE 20 MG TABLET PO SCH ×2 (08:25→22:17)
[2017-03-29] MEDS: ASCORBIC ACID 500 MG TABLET PO SCH (08:34)
[2017-03-29] MEDS: FUROSEMIDE 20 MG TABLET PO SCH ×2 (08:35→11:33)
--- NOTE | 2017-03-29 11:48 | Progress Note ---
<Lena Flores V - Last Filed: 03/29/17 11:45> Subjective: Chilo is seen and examined today in follow up. While up in the chair watching television. States that overall he is feeling good and notes that his left arm seems to be weeping less overnight. Is currently on 1 liter of oxygen by nasal cannula, however. Sats are 97%. Denies feeling short of breath or having chest pain. No GI complaints. Objective Vital signs: Temperature 97.8 F 03/29/17 08:00 Pulse Rate 95 03/29/17 08:00 Respiratory Rate 18 03/29/17 08:00 Blood Pressure 129/76 03/29/17 08:00 Pulse Oximetry 97 03/29/17 10:30 Height/Weight/BMI: Weight 83 kg - Constitutional Present: no acute distress, well nourished, well developed - Routine HEENT Exam Eye: Present: EOMI ENT: Present: mucous membranes moist, dentition normal - Routine Respiratory Exam Present: CTA bilaterally. Absent: wheezes - Routine Cardiovascular Exam Present: RRR, S1, S2. Absent: murmur - Routine Abdominal Exam Present: soft, normoactive bowel sounds, non distended. Absent: tenderness - Routine Extremities Exam Present: edema (LUE erythema and edema), pulses intact, normal capillary refill - Routine Back/Spine/Pelvis Exam Back/Spine: Present: full ROM - Routine Skin Exam Present: intact, dry, warm - Routine Neurological Exam Present: alert, oriented X3, CN II-XII intact - Routine Lymphatic Exam Lymphatic: Absent: adenopathy - Routine Psychiatric Exam Present: normal affect Results - Labs CBC & Chem 7: 03/29/17 05:39 03/29/17 05:39 Assessment and Plan (1) Cellulitis Current visit: Yes Status: Acute Assessment and Plan: Assessment Cellulitis, LUE with sepsis Hyperkalemia (POA) - resolved Hypotension (POA) -resolved Acute kidney injury (POA) CKD, stage 3, baseline creatinine 1.1-1.2 Atrial fibrillation, s/p ablation recently Anticoagulated with Xarelto Anemia, chronic CHF - Chronic systolic heart failure -- EF 30% on ECHO 12/31 Coronary artery disease Hypertension Diabetes mellitus type 2 - A1c 7.4 in 03/02 Sleep apnea, severe - needing sleep study Dysphagia BPH Urinary incontinence Osteoarthritis Macular degeneration Obesity with BMI 36.9 Plan Asked nursing staff to work on weaning oxygen down today as ordered. Baseline o2 only at night. Continue to elevate left upper extremity as erythema, oozing and swelling continue to improve. Lasix daily for gentle diuresis Continue to monitor blood sugars. Currently on 2 oral agents as well as sliding scale insulin Encourage work with PT for ongoing strengthening. Did administer injection today and abdomen without difficulty. As patient is in [place] research study group. Labs remain stable Sepsis Assessment - Evaluation Sepsis screening result: No Definite Risk Hospital Course Summary Disclaimer: The visit summary below is not to be considered part of the above Progress Note. Hospital Course: 03/25/17 - Hospital admission for observation Assessment Cellulitis to the left upper extremity Leukocytosis Hyperkalemia (POA) Hypotension (POA) Azotemia (POA) Atrial fibrillation Anemia CHF Hypertension Coronary artery disease Diabetes mellitus type 2 - A1c 7.4 in 03/02 Sleep apnea Dysphagia BPH Urinary incontinence Osteoarthritis Macular degeneration Obesity Plan Admit patient to observation status under the care of the hospitalist team, Dr. Carpenter attending, for IV antibiotic treatment of his cellulitis. Pharmacy consulted for vancomycin dosing. He will continue Xarelto for his atrial fibrillation. Telemetry to monitor rate and rhythm given his shortness of breath. Chest x-ray to evaluate shortness of breath. Given his hyperkalemia, will hold his potassium and sacubitril/valsartan. Given his hypotension and azotemia, will hold Lasix temporarily. Speech therapy consult given his dysphagia. Check urinalysis for laboratory completeness. Care to return to patient's PCP, Dr. Mtz, upon discharge. 03/26/17 Minor improvement in the left arm overnight, white count down slightly and patient has been afebrile however there is persistent edema with significant swelling of the digits and significant erythema involving majority of the arm from the wrist to a little above the elbow. Creatinine is up compared to admission and well above baseline. I don't believe patient is stable to convert to oral antibiotics at this time. Cultures pending. Continue vancomycin. Extensive imaging of the left arm yesterday demonstrated no thrombus or arterial compromise. ed by myself demonstrating cardiomegaly, pacemaker left upper chest wall, small bilateral pleural effusions. Creatinine 1.6 with baseline 1.1-1.2. Patient tolerated CPAP well overnight. Will require formal sleep study in the near future. ABG pending. GI workup anticipated for anemia, has been delayed after recent cardiac ablation. Hyperkalemia has corrected. BUN/creatinine up from yesterday, did not receive diuretics yesterday, received fluids in ER. Chest x-ray suggested mild heart failure. Metformin on hold pending stabilization of renal function. Blood pressure is low normal but no overt hypotension demonstrated today. Continue diltiazem, amiodarone, and Entresto due to underlying cardiac disease. PT/OT consults. Converted to inpatient due to ongoing need for IV antibiotics and due to worsening renal function. 03/27/17 Continue vancomycin for coverage of cellulitis. Clinically improving. White count decreased to 9.0. CM setting up outpatient sleep study. Discussed CPAP with patient. Does seem agreeable to this treatment. Creatinine with slight increase to 1.8 - will need to continue to monitor. Continue diltiazem, amiodarone, and Entresto due to underlying cardiac disease. Requiring oxygen during day (at home only uses at night). Will give one time dose of Lasix 40mg orally due to O2 needed and increased vascularity on CXR. Monitor hemoglobin. With patients underlying heart disease and hypoxia, may need transfusion. Will check Iron and Ferritin due to anemia. Start Iron and vitamin C due to anemia with microcytic markers. PT/OT consult initiated - pt to ambulate TID with assistance. Recheck CMP, Mg, and CBC in am due to cellulitis, medication us and CKD. 03/28/17 Plan Contacted [facility] regarding current illness, hospitalization. Clinical coordinator will return call later today. Clinically LUE cellulitis continues to improve of current regimen of Vancomycin Discussed possible need to sleep study outpatient. Uses oxygen at night chronically however is requiring some during day. Wean down as able. Repeat Lasix PO for gentle diuresis Continue diltiazem, amiodarone, and Entresto due to underlying cardiac disease. Iron studies pending, supplement orally Encourage continued work with PT/OT for strengthening Continue to monitor labs routinely 03/29/17 Asked nursing staff to work on weaning oxygen down today as ordered. Baseline o2 only at night. Continue to elevate left upper extremity as erythema, oozing and swelling continue to improve. Lasix daily for gentle diuresis Continue to monitor blood sugars. Currently on 2 oral agents as well as sliding scale insulin Encourage work with PT for ongoing strengthening. Did administer injection today and abdomen without difficulty. As patient is in [place] research study group. <Jesus Williamson - Last Filed: 03/29/17 13:25> Objective Vital signs: Temperature 97.8 F 03/29/17 08:00 Pulse Rate 95 03/29/17 08:00 Respiratory Rate 18 03/29/17 08:00 Blood Pressure 129/76 03/29/17 08:00 Pulse Oximetry 97 03/29/17 10:30 Height/Weight/BMI: Weight 83 kg Results - Labs CBC & Chem 7: 03/29/17 05:39 03/29/17 05:39 Assessment and Plan (1) Cellulitis Current visit: Yes Status: Acute DVT Prophylaxis: Xarelto Resuscitation Status: Full Code Assessment and Plan: Assessment Cellulitis, LUE with sepsis Hyperkalemia (POA) - resolved Hypotension (POA) -resolved Acute kidney injury (POA) CKD, stage 3, baseline creatinine 1.1-1.2 Atrial fibrillation, s/p ablation recently Anticoagulated with Xarelto Anemia, chronic CHF - Chronic systolic heart failure -- EF 30% on ECHO 12/31 Coronary artery disease Hypertension Diabetes mellitus type 2 - A1c 7.4 in 03/02 Sleep apnea, severe - needing sleep study Dysphagia BPH Urinary incontinence Osteoarthritis Macular degeneration Obesity with BMI 36.9 Have independently interviewed and examined pt. Chart reviewed. Case discussed with CM and my CATHETER[employer]ATION LABORATORY TECHNICIAN. Care plan developed with my supervision; agree with above. Feels like he is improving. Breathing doing better. Arm feeling great-no pain or discomfort. Moving arm well. Strength increasing. Eating well. No nausea. Stools slow, but not out of ordinary for him. Lungs: decreased but improving air movement. No distress CV: regular AB: soft nt/nd MSE: awake alert appropriate Plan: Continue Vancomycin, like clindamycin in outpatient setting. Wean O2 as able. Encourage activities and ambulation. Renal function stable-continue to monitor. Possible discharge tomorrow if continues to do well. Hospital Course Summary Disclaimer: The visit summary below is not to be considered part of the above Progress Note.
[2017-03-29] MEDS: NS FLUSH BAG 500ml IV PRN (12:55)
[2017-03-29] MEDS: ATORVASTATIN 20 MG TABLET PO SCH (22:17)
[2017-03-29] MEDS: SENNOSIDES 8.6 MG TABLET PO SCH (22:17)
[2017-03-30] MEDS: INSULIN ASPART 100unit/ml INJECTION SQ PRN ×4 (00:24→17:24)
[2017-03-30] MEDS: PANTOPRAZOLE 40 MG TABLET PO SCH (06:41)
[2017-03-30] MEDS: SALINE FLUSH 10ml SYRINGE IVF PRN ×2 (07:57→11:40)
[2017-03-30] MEDS: NS FLUSH BAG 500ml IV PRN (07:57)
[2017-03-30] MEDS: FUROSEMIDE 20 MG TABLET PO SCH ×2 (08:28→12:12)
[2017-03-30] MEDS: MULTIVIT WITH IRON PO SCH (08:28)
[2017-03-30] MEDS: ASCORBIC ACID 500 MG TABLET PO SCH (08:29)
[2017-03-30] MEDS: SACUBITRIL/VALSARTAN 24/26mg TABLET PO SCH (08:29)
[2017-03-30] MEDS: GLIMEPIRIDE 2 MG TABLET PO SCH (08:29)
[2017-03-30] MEDS: FAMOTIDINE 20 MG TABLET PO SCH (08:29)
[2017-03-30] MEDS: RIVAROXABAN 20 MG TABLET PO SCH (08:29)
[2017-03-30] MEDS: CARVEDILOL 25 MG TABLET PO SCH ×2 (08:29→17:24)
[2017-03-30] MEDS: DILTIAZEM CD 240 MG CAPSULE PO SCH (08:29)
[2017-03-30] MEDS: FERROUS SULFATE 324 MG TABLET PO SCH (08:29)
[2017-03-30] MEDS: AMIODARONE 200 MG TABLET PO SCH (08:29)
[2017-03-30] MEDS ORDERED: CYANOCOBALAMIN (B-12) 1,000mcg/ml INJECTION IM ONE (09:02)
--- NOTE | 2017-03-30 09:52 | Pharmacy Consult ---
Pharmacy Consult-[facility] - Laboratory Information IV IRON CONSULT: Dx: Chronic Anemia: Will give TDI (Total Dose Infusion) over 4 hours. Actual body weight = 80.5 kg Hgb Level = 9.6 g/dL Calculated Dosing weight = 43.5 kg Total dose needed: 1050 mg (21 mL) Will give test dose of 25mg IV push over 30 seconds. Watch VS q 15 minutes x 1 hr. (watching for anaphylaxis, respiratory distress, hives.) If no reaction will give full dose in NS 500ml TRA 125ml/hr. Watch VS q 1 hr during infusion. Thank you for the [facility] Protocol, Carl Vásquez, Pharmacist.
[2017-03-30] MEDS ORDERED: IRON DEXTRAN COMPLEX 100mg/2ml INJECTION IVP ONE (10:00)
--- NOTE | 2017-03-30 10:08 | Progress Note ---
Subjective: F/U: Sepsis secondary to cellulitis of left upper ext. Doing well today. No f/c. Redness and swelling to left arm just about completely resolved. Not having any pain or decreased ROM of this ext. Breathing well-not needing O2 at rest. No chest pressure or pain. Eating well. Had stool. Urinating well. Objective Vital signs: Temperature 98.2 F 03/30/17 07:27 Pulse Rate 76 03/30/17 08:00 Respiratory Rate 18 03/30/17 07:27 Blood Pressure 118/58 03/30/17 07:27 Pulse Oximetry 96 03/30/17 08:16 Height/Weight/BMI: Weight 80.5 kg - Constitutional Present: no acute distress, well nourished, well developed, obese, cooperative. Absent: combative, agitated - Routine HEENT Exam Head: Present: normocephalic, atraumatic Eye: Present: EOMI, PERRL ENT: Present: mucous membranes moist - Routine Respiratory Exam Present: decreased breath sounds. Absent: dyspnea, respiratory distress, rhonchi, wheezes, crackles - Routine Cardiovascular Exam Present: RRR - Routine Abdominal Exam Present: soft, normoactive bowel sounds, non distended, non tender - Routine Extremities Exam Present: edema (+2 Bilateral LE edema ), pulses intact. Absent: cyanosis, clubbing - Routine Musculoskeletal Exam Musculoskeletal: Present: no clubbing or cyanosis, normal strength - Routine Skin Exam Present: intact, warm - Routine Neurological Exam Present: alert, oriented X3, CN II-XII intact, moving all extremities, vision grossly intact, hearing grossly intact. Absent: motor deficit - Routine Psychiatric Exam Present: normal affect, normal thought process, cooperative, good insight, good judgment. Absent: anxious, agitated Results - Labs CBC & Chem 7: 03/30/17 06:32 03/30/17 06:32 Assessment and Plan (1) Cellulitis Current visit: Yes Status: Acute DVT Prophylaxis: Xarelto Resuscitation Status: Full Code Assessment and Plan: Assessment Sepsis (POA) - resolved Cellulitis, LUE with sepsis Hyperkalemia (POA) - resolved Hypotension (POA) -resolved Acute kidney injury (POA) CKD, stage 3, baseline creatinine 1.1-1.2 Atrial fibrillation, s/p ablation recently Anticoagulated with Xarelto Anemia, chronic CHF - Chronic systolic heart failure -- EF 30% on ECHO 12/31 Coronary artery disease Hypertension Diabetes mellitus type 2 - A1c 7.4 in 03/02 Sleep apnea, severe - needing sleep study Dysphagia BPH Urinary incontinence Osteoarthritis Macular degeneration Vitamin B12 deficiency Obesity with BMI 36.9 Plan Cellulitis of left upper ext essentially resolved. Sepsis syndrome completely resolved. WBC normal at 8.3. HGB 9.6. Creatinine 1.3. Vitamin B12 level returned low at <159. Will give Vit B12 1000mcg IM x1 and start oral. Will need Vit B12 level rechecked in about 2-3 months to ensure oral intake increasing B12 stores. Iron level returned low - continue oral supplement. Will also give IV Iron infusion today. Sleep study being set up in outpatient setting for his MARZENA. As medically improved, will discharge to home after IV Iron infusion. Clindamycin 300mg po TID for 4 days to cover cellulitis of arm. F/U with Dr Mtz in 1 week. See orders for details. - Time spent with patient discharge greater than 30 minutes Sepsis Assessment - Evaluation Sepsis screening result: No Definite Risk Hospital Course Summary Disclaimer: The visit summary below is not to be considered part of the above Progress Note. Hospital Course: 03/25/17 - Hospital admission for observation Assessment Cellulitis to the left upper extremity Leukocytosis Hyperkalemia (POA) Hypotension (POA) Azotemia (POA) Atrial fibrillation Anemia CHF Hypertension Coronary artery disease Diabetes mellitus type 2 - A1c 7.4 in 03/02 Sleep apnea Dysphagia BPH Urinary incontinence Osteoarthritis Macular degeneration Obesity Plan Admit patient to observation status under the care of the hospitalist team, Dr. Carpenter attending, for IV antibiotic treatment of his cellulitis. Pharmacy consulted for vancomycin dosing. He will continue Xarelto for his atrial fibrillation. Telemetry to monitor rate and rhythm given his shortness of breath. Chest x-ray to evaluate shortness of breath. Given his hyperkalemia, will hold his potassium and sacubitril/valsartan. Given his hypotension and azotemia, will hold Lasix temporarily. Speech therapy consult given his dysphagia. Check urinalysis for laboratory completeness. Care to return to patient's PCP, Dr. Mtz, upon discharge. 03/26/17 Minor improvement in the left arm overnight, white count down slightly and patient has been afebrile however there is persistent edema with significant swelling of the digits and significant erythema involving majority of the arm from the wrist to a little above the elbow. Creatinine is up compared to admission and well above baseline. I don't believe patient is stable to convert to oral antibiotics at this time. Cultures pending. Continue vancomycin. Extensive imaging of the left arm yesterday demonstrated no thrombus or arterial compromise. ed by myself demonstrating cardiomegaly, pacemaker left upper chest wall, small bilateral pleural effusions. Creatinine 1.6 with baseline 1.1-1.2. Patient tolerated CPAP well overnight. Will require formal sleep study in the near future. ABG pending. GI workup anticipated for anemia, has been delayed after recent cardiac ablation. Hyperkalemia has corrected. BUN/creatinine up from yesterday, did not receive diuretics yesterday, received fluids in ER. Chest x-ray suggested mild heart failure. Metformin on hold pending stabilization of renal function. Blood pressure is low normal but no overt hypotension demonstrated today. Continue diltiazem, amiodarone, and Entresto due to underlying cardiac disease. PT/OT consults. Converted to inpatient due to ongoing need for IV antibiotics and due to worsening renal function. 03/27/17 Continue vancomycin for coverage of cellulitis. Clinically improving. White count decreased to 9.0. CM setting up outpatient sleep study. Discussed CPAP with patient. Does seem agreeable to this treatment. Creatinine with slight increase to 1.8 - will need to continue to monitor. Continue diltiazem, amiodarone, and Entresto due to underlying cardiac disease. Requiring oxygen during day (at home only uses at night). Will give one time dose of Lasix 40mg orally due to O2 needed and increased vascularity on CXR. Monitor hemoglobin. With patients underlying heart disease and hypoxia, may need transfusion. Will check Iron and Ferritin due to anemia. Start Iron and vitamin C due to anemia with microcytic markers. PT/OT consult initiated - pt to ambulate TID with assistance. Recheck CMP, Mg, and CBC in am due to cellulitis, medication us and CKD. 03/28/17 Contacted [facility] regarding current illness, hospitalization. Clinical coordinator will return call later today. Clinically LUE cellulitis continues to improve of current regimen of Vancomycin Discussed possible need to sleep study outpatient. Uses oxygen at night chronically however is requiring some during day. Wean down as able. Repeat Lasix PO for gentle diuresis Continue diltiazem, amiodarone, and Entresto due to underlying cardiac disease. Iron studies pending, supplement orally Encourage continued work with PT/OT for strengthening Continue to monitor labs routinely 03/29/17 Asked nursing staff to work on weaning oxygen down today as ordered. Baseline O2 only at night. Continue to elevate left upper extremity as erythema, oozing and swelling continue to improve. Lasix daily for gentle diuresis Continue to monitor blood sugars. Currently on 2 oral agents as well as sliding scale insulin Encourage work with PT for ongoing strengthening. Did administer injection today and abdomen without difficulty. As patient is in [place] research study group. 03/30/17 Cellulitis of left upper ext essentially resolved. Sepsis syndrome completely resolved. WBC normal at 8.3. HGB 9.6. Creatinine 1.3. Vitamin B12 level returned low at <159. Will give Vit B12 1000mcg IM x1 and start oral. Will need Vit B12 level rechecked in about 2-3 months to ensure oral intake increasing B12 stores. Iron level returned low - continue oral supplement. Will also give IV Iron infusion today. Sleep study being set up in outpatient setting for his MARZENA. As medically improved, will discharge to home after IV Iron infusion. Clindamycin 300mg po TID for 4 days to cover cellulitis of arm. F/U with Dr Mtz in 1 week. See orders for details.
--- NOTE | 2017-03-30 10:17 | XRay Report ---
INDICATION: F/U PROCEDURE: CHEST 2-VIEWS UPRIGHT (PA & LAT) Encounter: Initial COMPARISON: March 25, 2017 FINDINGS: Small pleural effusions are stable. Lung black are stable. No new airspace disease. No pneumothorax. Cardiomediastinal contours are unchanged. Pulmonary vascular congestion has improved. Left pacemaker. Impression: Decreasing pulmonary vascular congestion. .
--- NOTE | 2017-03-30 10:43 | Pharmacy Consult-Antibiotics ---
Pharmacy Consult-Vancomycin - Laboratory Information WBC 8.3 T/MM3 (4.5-11.0) 03/30/17 06:32 BUN 20.0 MG/DL (9-20) 03/30/17 06:32 Creatinine 1.3 MG/DL (0.8-1.5) 03/30/17 06:32 Procalcitonin 0.09 NG/ML 03/25/17 08:28 Vancomycin Trough 19.75 UG/ML (15-20) 03/30/17 06:32 - Consult Information Vancomycin trough is in target range. Will continue present dose of vancomycin 1 gram IV q18h. Thank you.
[2017-03-30] MEDS ORDERED: NS IV ONE (11:00)
[2017-03-30] MEDS ORDERED: IRON DEXTRAN IV ONE (11:00)
[2017-03-30 14:12] VITALS: TEMP 97.9
[2017-03-30 15:14] VITALS: BP 126/64; RESP 18; O2SAT 95
[2017-03-30 16:13] VITALS: PULSE 72
--- NOTE | 2017-03-30 17:27 | Discharge Summary ---
Discharge Information Date of admission: 03/26/17 14:10 Anticipated date of discharge: 03/30/17 Attending Physician: Jesus Williamson MD Primary care physician: Geovani Mtz II, MD Consults: PT/OT - Discharge Diagnosis (1) Cellulitis Status: Acute Discharge Diagnosis: Discharge Diagnosis Sepsis (POA) - resolved Associated conditions and complications Cellulitis, LUE with sepsis Hyperkalemia (POA) - resolved Hypotension (POA) -resolved Acute kidney injury (POA) CKD, stage 3, baseline creatinine 1.1-1.2 Atrial fibrillation, s/p ablation recently Anticoagulated with Xarelto Anemia, chronic Iron deficiency - IV iron infusion on 03/30/17 CHF - Chronic systolic heart failure -- EF 30% on ECHO 12/31 Coronary artery disease Hypertension Diabetes mellitus type 2 - A1c 7.4 in 03/02 Sleep apnea, severe - needing sleep study Dysphagia BPH Urinary incontinence Osteoarthritis Macular degeneration Vitamin B12 deficiency Obesity with BMI 36.9 - Procedures Procedures: 03/30/17: IV Iron infusion - Laboratory Labs: Admit Lab 03/25/17 08:28 WBC 17.9 H Hgb 9.1 L Hct 30.9 L MCV 76.1 L Neutrophils % (Manual) 89.0 H Band Neutrophils % 4.0 Admit Lab 03/25/17 08:28 Sodium 142 Potassium 5.7 H Chloride 110 H Carbon Dioxide 20 L BUN 28.0 H Creatinine 1.6 H GFR Calculation 42 BUN/Creatinine Ratio 18 Glucose 145 H Calculated Osmolality 282 H Total Bilirubin 0.90 AST 33 ALT 29 Plasma Lactate 1.9 Specimen Hemolysis 68 H Important Lab 03/28/17 04:51 Iron 16 L TIBC 344 % Saturation 5 L Ferritin 33.3 Vitamin B12 < 159 L 03/30/17 06:32 03/30/17 06:32 - Radiology Radiology: Date of Exam: 03/25/17 PROCEDURE: US arterial duplex UE LT Findings: Normal waveforms seen throughout the left upper extremity arteries. No occlusion or significant plaque. No focal stenosis. Impression: Negative exam. Date of Exam: 03/25/17 PROCEDURE: US venous doppler UE LT FINDINGS: There is no evidence for acute deep venous thrombosis in the left arm. The left internal jugular, subclavian, axillary and paired brachial veins were evaluated; compression and augmentation were applied where possible. In addition, color and pulsed Doppler demonstrate appropriate spontaneous flow, cardiac pulsatility and variation with respiration. IMPRESSION: No evidence of acute DVT in the left upper extremity. History of Present Illness HPI: Mr. Samson is a 81-year-old male who presented to the emergency department this morning due to swelling and redness of the left arm. He states last night he felt fine and there was no abnormality to his arm. He woke this morning and felt very weak. His noticed his sheets are wet from seepage from the swollen arm. He reports no sores to the extremity, except he did have a small skin tear yesterday on his hand. He has not had fever that he is aware of. He states he was in to see his PCP, Dr. Mtz, yesterday. He was started on a new blood pressure medication, Entresto, 1 week ago. He had cardiac ablation done by Dr. Rao 3 weeks ago. He was previously scheduled to see Dr. Saunders for EGD due to his anemia, but this was rescheduled as cardiology recommended he be at least 3 months post ablation before having a procedure. He notes he had some blood in his stool approximately a week ago as well. Reports his last colonoscopy and EGD were 3 years ago and were "fine." He is usually on nocturnal oxygen 3-4 L. Patient was seen in the emergency room with his and son present. He is currently on oxygen and if he laughs or talks for too long he will desat below 80%. With deep breaths, sats improve. He states he does feel more short of breath than usual. States for the past 2 weeks he's had to sleep in his recliner because if he sleeps flat, he "plugs up" in his chest. He has occasional cough. Reports left arm "feels funny" but doesn't really hurt. Workup in the emergency room included venous Doppler and arterial duplex scan of the left upper extremity which were normal. White count was elevated at 17.9. Has known microcytic anemia with a hemoglobin of 9.1. Potassium was elevated at 5.7, however, specimen was hemolyzed. Creatinine 1.6 BUN 28. He was hypotensive in the ER and was bolused with LR. For complete details of the H&P refer to the medical record. Objective Vital signs: Temperature 97.9 F 03/30/17 15:12 Pulse Rate 72 03/30/17 16:00 Respiratory Rate 18 03/30/17 15:12 Blood Pressure 126/64 03/30/17 15:12 Pulse Oximetry 95 03/30/17 16:40 Height/Weight/BMI: Weight 80.5 kg Hospital Course This is a general summary of the patient's hospital course. For more details refer to the complete medical record. Hospital course: 03/25/17 - Hospital admission for observation Assessment Cellulitis to the left upper extremity Leukocytosis Hyperkalemia (POA) Hypotension (POA) Azotemia (POA) Atrial fibrillation Anemia CHF Hypertension Coronary artery disease Diabetes mellitus type 2 - A1c 7.4 in 03/02 Sleep apnea Dysphagia BPH Urinary incontinence Osteoarthritis Macular degeneration Obesity Plan Admit patient to observation status under the care of the hospitalist team, Dr. Carpenter attending, for IV antibiotic treatment of his cellulitis. Pharmacy consulted for vancomycin dosing. He will continue Xarelto for his atrial fibrillation. Telemetry to monitor rate and rhythm given his shortness of breath. Chest x-ray to evaluate shortness of breath. Given his hyperkalemia, will hold his potassium and sacubitril/valsartan. Given his hypotension and azotemia, will hold Lasix temporarily. Speech therapy consult given his dysphagia. Check urinalysis for laboratory completeness. Care to return to patient's PCP, Dr. Mtz, upon discharge. 03/26/17 Minor improvement in the left arm overnight, white count down slightly and patient has been afebrile however there is persistent edema with significant swelling of the digits and significant erythema involving majority of the arm from the wrist to a little above the elbow. Creatinine is up compared to admission and well above baseline. I don't believe patient is stable to convert to oral antibiotics at this time. Cultures pending. Continue vancomycin. Extensive imaging of the left arm yesterday demonstrated no thrombus or arterial compromise. ed by myself demonstrating cardiomegaly, pacemaker left upper chest wall, small bilateral pleural effusions. Creatinine 1.6 with baseline 1.1-1.2. Patient tolerated CPAP well overnight. Will require formal sleep study in the near future. ABG pending. GI workup anticipated for anemia, has been delayed after recent cardiac ablation. Hyperkalemia has corrected. BUN/creatinine up from yesterday, did not receive diuretics yesterday, received fluids in ER. Chest x-ray suggested mild heart failure. Metformin on hold pending stabilization of renal function. Blood pressure is low normal but no overt hypotension demonstrated today. Continue diltiazem, amiodarone, and Entresto due to underlying cardiac disease. PT/OT consults. Converted to inpatient due to ongoing need for IV antibiotics and due to worsening renal function. 03/27/17 Continue vancomycin for coverage of cellulitis. Clinically improving. White count decreased to 9.0. CM setting up outpatient sleep study. Discussed CPAP with patient. Does seem agreeable to this treatment. Creatinine with slight increase to 1.8 - will need to continue to monitor. Continue diltiazem, amiodarone, and Entresto due to underlying cardiac disease. Requiring oxygen during day (at home only uses at night). Will give one time dose of Lasix 40mg orally due to O2 needed and increased vascularity on CXR. Monitor hemoglobin. With patients underlying heart disease and hypoxia, may need transfusion. Will check Iron and Ferritin due to anemia. Start Iron and vitamin C due to anemia with microcytic markers. PT/OT consult initiated - pt to ambulate TID with assistance. Recheck CMP, Mg, and CBC in am due to cellulitis, medication us and CKD. 03/28/17 Contacted [facility] regarding current illness, hospitalization. Clinical coordinator will return call later today. Clinically LUE cellulitis continues to improve of current regimen of Vancomycin Discussed possible need to sleep study outpatient. Uses oxygen at night chronically however is requiring some during day. Wean down as able. Repeat Lasix PO for gentle diuresis Continue diltiazem, amiodarone, and Entresto due to underlying cardiac disease. Iron studies pending, supplement orally Encourage continued work with PT/OT for strengthening Continue to monitor labs routinely 03/29/17 Asked nursing staff to work on weaning oxygen down today as ordered. Baseline O2 only at night. Continue to elevate left upper extremity as erythema, oozing and swelling continue to improve. Lasix daily for gentle diuresis Continue to monitor blood sugars. Currently on 2 oral agents as well as sliding scale insulin Encourage work with PT for ongoing strengthening. Did administer injection today and abdomen without difficulty. As patient is in [place] research study group. 03/30/17 Cellulitis of left upper ext essentially resolved. Sepsis syndrome completely resolved. WBC normal at 8.3. HGB 9.6. Creatinine 1.3. Vitamin B12 level returned low at <159. Will give Vit B12 1000mcg IM x1 and start oral. Will need Vit B12 level rechecked in about 2-3 months to ensure oral intake increasing B12 stores. Iron level returned low - continue oral supplement. Will also give IV Iron infusion today. Sleep study being set up in outpatient setting for his MARZENA. As medically improved, will discharge to home after IV Iron infusion. Clindamycin 300mg po TID for 4 days to cover cellulitis of arm. Potassium stopped level elevated at presentation (possible hemolysis); potassium remained normal during hospitalization. F/U with Dr Mtz in 1 week. Check CBC secondary to anemia. Started on oral [id number] level in 2-3 months. Check BMP due to resolved RACHEL and medication use. See orders for details. Time spent with patient: discharge greater than 30 minutes DVT Prophylaxis: Xarelto GI Prophylaxis: Protonix, Pepcid Discharge Plan - Med Rec/Dispo Referrals/Follow Up: Geovani Mtz II, MD [Primary Care Provider] - 1 Week (Hospital follow up. Check CBC secondary to anemia. Started on oral [id number] level in 2-3 months. Check BMP due to resolved RACHEL and medication use. ) [place] Instructions: Cellulitis (GEN) Additional Instructions: Take Iron (Ferrous sulfate) with Vitamin C to help anemia. Take Vitamin B12 1000mcg daily as B12 level low-this can also help anemia. Prescriptions: New Ascorbic Acid [Vitamin C] 500 mg PO WB tablet Clindamycin [Cleocin] 300 mg PO TID #12 cap Cyanocobalamin (B-12) [Vit. B-12] 1,000 mcg PO DAILY tablet Ferrous Sulfate [Feosol] 324 mg PO WB tablet Continue Glimepiride 2 mg PO DAILY #0 Amiodarone [Pacerone] 200 mg PO DAILY #30 DiltiaZEM CD [Cardizem Cd] 240 mg PO DAILY #30 cap Furosemide [Lasix] 20 mg PO WL Furosemide [Lasix] 40 mg PO DAILY Atorvastatin [Lipitor] 20 mg PO HS Famotidine [Pepcid] 20 mg PO BID #0 tab Rivaroxaban [Xarelto] 20 mg PO DAILY #30 Pedi Mv No.79/Ferrous Fumarate [Flintstones with Iron Tab Chew] 18 mg PO DAILY Metformin [Glucophage] 1,000 mg PO BID Carvedilol [Coreg] 25 mg PO BIDWM #60 tab Pantoprazole Tab [Protonix Tab] 40 mg PO DAILY SACUBITRIL/VALSARTAN 24/26mg [ENTRESTO 24/26mg] 1 tab PO BID Discontinued Potassium Chloride [K-Dur] 20 meq PO DAILY Discharge Instructions/Outpatient Orders: Final Provider Discharge Instructions Location: Determined By Patient - Disposition 01 Discharged Home, Self-Care - Attestation Attestation Narrative: 03/30/17 17:39 I have independently interviewed and examined pt prior to discharge. See my progress note from today for details. Medically stable for discharge to home.
[2017-03-31] MEDS ORDERED: CYANOCOBALAMIN (B-12) 500mcg TABLET PO SCH (09:00)
== END 2017-03-30 17:59 | disposition home or self-care (01) | DRG 872 ==
LOC: ED 08:01 → MED 08:01
PROVIDERS: ADMIT Internal Medicine; ATTEND Hospitalist